=== PATIENT | female | born 1985 | race Caucasian/White ===

== ENCOUNTER 2017-07-28 18:03 | Emergency (ER) | payer MEDICAID, OTHER ==
[~2017-07-28] VITALS: Ht 149.9 cm; Wt 105.0 kg
[~2017-07-28 18:03] MED LIST: ASPI-41 PO; ATOR10TA PO; ESCI20TA PO; HYDR-3972 PO; Metoprolol Tartrate PO; NAPR220T67 PO; SUMA25TA35 PO
[2017-07-28 18:42] LABS: BASOPHILS % (AUTO) 0.2 % (0-1); EOSINOPHILS # (AUTO) 0.3 X10'3 (0-0.9); EOSINOPHILS % (AUTO) 2.6 % (0-6); HEMATOCRIT 34.6 % (35.0-45.0); HEMOGLOBIN 11.9 g/dl (12.0-16.0); LYMPHOCYTES # (AUTO) 1.7 X10'3 (1.1-4.8); LYMPHOCYTES % (AUTO) 15.6 % (21-51); MEAN CORPUSCULAR HEMOGLOBIN 31.1 PG (27.0-31.0); MEAN CORPUSCULAR HGB CONC 34.5 % (33.0-36.5); MEAN CORPUSCULAR VOLUME 90.2 FL (78-98); MEAN PLATELET VOLUME 7.9 FL (7.4-10.4); MONOCYTES # (AUTO) 0.5 X10'3 (0-0.9); MONOCYTES % (AUTO) 4.3 % (2-12); NEUTROPHILS # (AUTO) 8.7 X10'3 (1.8-7.7); NEUTROPHILS % (AUTO) 77.3 % (42-75); PLATELET COUNT 305 X10'3 (140-440); RED BLOOD COUNT 3.83 X10'6 (4.20-5.60); RED CELL DISTRIBUTION WIDTH 12.8 % (11.5-14.5); WHITE BLOOD COUNT 11.2 X10'3 (4.5-11.0)
[2017-07-28 19:01] LABS: ALANINE AMINOTRANSFERASE 37 U/L (12-78); ALBUMIN 3.1 G/DL (3.4-5.0); ALBUMIN/GLOBULIN RATIO 0.8 (1.1-1.5); ALKALINE PHOSPHATASE 60 IU/L (46-116); ANION GAP 10 (8-16); ASPARTATE AMINO TRANSFERASE 18 U/L (10-37); BILIRUBIN,TOTAL 0.3 MG/DL (0.1-1.0); BLOOD UREA NITROGEN 7 MG/DL (7-18); BUN/CREATININE RATIO 12.1 (6.6-38.0); CHLORIDE 104 MMOL/L (99-107); CREATININE 0.58 MG/DL (0.40-0.90); GLUCOSE 83 MG/DL (70-104); POTASSIUM 3.6 MMOL/L (3.5-5.1); SODIUM 135 MMOL/L (135-145); TOTAL CARBON DIOXIDE 21.3 MMOL/L (24-32); TOTAL PROTEIN 7.2 G/DL (6.4-8.2); eGFR > 90 ML/MIN
[2017-07-28 19:18] LABS: BETA HCG,QUANTITATIVE 21469 mIU/ml; MAGNESIUM 1.6 MG/DL (1.5-2.4)
[2017-07-28 20:11] VITALS: BP 113/67
== END 2017-07-28 20:13 | disposition home or self-care (01) ==
LOC: ER 18:05
DX: O26.892 Other specified pregnancy related conditions, second trimester (principal); R07.9 Chest pain, unspecified; E78.00 Pure hypercholesterolemia, unspecified; G43.909 Migraine, unspecified, not intractable, without status migrainosus; I25.10 Atherosclerotic heart disease of native coronary artery without angina pectoris; I25.2 Old myocardial infarction; F41.9 Anxiety disorder, unspecified; O99.332 Smoking (tobacco) complicating pregnancy, second trimester; F17.200 Nicotine dependence, unspecified, uncomplicated; Z79.82 Long term (current) use of aspirin; Z3A.15 15 weeks gestation of pregnancy; Z95.1 Presence of aortocoronary bypass graft
CPT/HCPCS: 36415; 71045; 80053; 83735; 84484; 84702; 85025; 86900; 86901; 93005; 99285; J7030

== ENCOUNTER 2018-12-04 15:14 | Inpatient (IN) | payer MEDICAID ==
[~2018-12-04] VITALS: Ht 149.9 cm; Wt 108.0 kg
[2018-12-04 15:51] LABS: BASOPHILS # (AUTO) 0.1 X10'3 (0-0.2); BASOPHILS % (AUTO) 0.9 % (0-1); EOSINOPHILS # (AUTO) 0.2 X10'3 (0-0.9); EOSINOPHILS % (AUTO) 2.6 % (0-6); HEMATOCRIT 37.9 % (35.0-45.0); LYMPHOCYTES # (AUTO) 1.8 X10'3 (1.1-4.8); LYMPHOCYTES % (AUTO) 23.3 % (21-51); MEAN CORPUSCULAR HEMOGLOBIN 33.1 PG (27.0-31.0); MEAN CORPUSCULAR HGB CONC 34.4 g/dL (33.0-36.5); MEAN CORPUSCULAR VOLUME 96.2 FL (78-98); MEAN PLATELET VOLUME 7.8 FL (7.4-10.4); MONOCYTES # (AUTO) 0.4 X10'3 (0-0.9); MONOCYTES % (AUTO) 5.7 % (2-12); NEUTROPHILS # (AUTO) 5.2 X10'3 (1.8-7.7); NEUTROPHILS % (AUTO) 67.5 % (42-75); PLATELET COUNT 246 X10'3 (140-440); RED BLOOD COUNT 3.94 X10'6 (4.20-5.60); RED CELL DISTRIBUTION WIDTH 13.3 % (11.5-14.5); WHITE BLOOD COUNT 7.7 X10'3 (4.5-11.0)
[2018-12-04 16:03] LABS: ALANINE AMINOTRANSFERASE 55 U/L (12-78); ALBUMIN 3.3 G/DL (3.4-5.0); ALBUMIN/GLOBULIN RATIO 0.9 (1.1-1.5); ALKALINE PHOSPHATASE 72 IU/L (46-116); ANION GAP 8 (8-16); ASPARTATE AMINO TRANSFERASE 26 U/L (10-37); BILIRUBIN,TOTAL 0.2 MG/DL (0.1-1.0); BLOOD UREA NITROGEN 9 MG/DL (7-18); BUN/CREATININE RATIO 10.3 (6.6-38.0); CALCIUM 8.7 MG/DL (8.5-10.1); CHLORIDE 104 MMOL/L (99-107); CREATININE 0.87 MG/DL (0.40-0.90); GLUCOSE 105 MG/DL (70-104); POTASSIUM 3.5 MMOL/L (3.5-5.1); SODIUM 139 MMOL/L (135-145); TOTAL CARBON DIOXIDE 26.9 MMOL/L (24-32); TOTAL PROTEIN 6.9 G/DL (6.4-8.2); eGFR 76 ML/MIN
[2018-12-04 16:29] LABS: PARTIAL THROMBOPLASTIN TIME 24 SECONDS (22-32)
--- NOTE | 2018-12-04 18:00 | NUR ---
spoke to dr felipe informed of left chest pain, she stated that she will put in orders, pt denies current nausea, numbness tingling or lightheadedness
[2018-12-04] MEDS ORDERED: morphine 4 MG/ML inj SYRINge IV ONE ×2 (18:15→19:15)
[2018-12-04] MEDS ORDERED: nitroGLYCERIN 1gm ointment UD TP ONE (19:15)
[2018-12-04] MEDS ORDERED: ESCI20TA PO (19:32)
[2018-12-04] MEDS ORDERED: ATOR20TA PO (19:32)
[2018-12-04] MEDS ORDERED: BACL10TA PO (19:33)
[2018-12-04] MEDS: aspirin 325mg tablet, delayed-release (Ecotrin) PO SCH (19:40)
[2018-12-04] MEDS ORDERED: magnesium 4gm in 100ml NS 100 ML IV PRN (19:45)
[2018-12-04] MEDS ORDERED: potassium CL 10mEq/100ml bag 100 ML IV PRN (19:45)
[2018-12-04] MEDS ORDERED: magnesium Cl slow-release 64mg tablet PO PRN (19:45)
[2018-12-04] MEDS: nitroGLYCERIN 0.4mg/hour patch TD SCH (19:45)
[2018-12-04] MEDS ORDERED: potassium Cl 40MEQ/NS 500ml 500 ML IV PRN (19:45)
[2018-12-04] MEDS ORDERED: magnesium 2GM in 50ml NS 50 ML IV PRN (19:45)
[2018-12-04] MEDS ORDERED: morphine 2 MG/ML inj. syringe IV PRN (19:45)
[2018-12-04] MEDS ORDERED: potassium Cl 20 mEq SR tablet PO PRN ×2 (19:45)
[2018-12-04] MEDS ORDERED: acetaminophen 325mg tablet PO PRN (19:45)
[2018-12-04] MEDS ORDERED: ondansetron/PF 4mg/2ml inj IV PRN (19:45)
[2018-12-04] MEDS ORDERED: LORazepam 2 mg/ml vial IV PRN (19:45)
[2018-12-04] MEDS ORDERED: mag hydrox/Alum hydrox/simeth 30ml oral suspension PO PRN (19:45)
[2018-12-04] MEDS ORDERED: magnesium hydroxide 30ml (MOM) UD suspension PO PRN (19:45)
[2018-12-04] MEDS ORDERED: regadenoson 0.4mg/5ml syringe IV PRN (19:50)
[2018-12-04] MEDS ORDERED: metoprolol tartrate 1mg/ml inj IV PRN (19:50)
[2018-12-04] MEDS ORDERED: aminophylline 250mg/10ml inj. IV PRN (19:50)
--- NOTE | 2018-12-04 20:01 | NUR ---
Attempted to call PCU to give report for pt transfer. Receiving nurses name is Thania and stated they will call me back to receive report in a few minutes.
--- NOTE | 2018-12-04 20:26 | NUR ---
Patient in room 3024A. I have received report from ELVIS Christine and had the opportunity to ask questions and assume patient care.
[2018-12-04 20:49] VITALS: BP 174/70
[2018-12-04] MEDS: docusate sod 100mg capsule PO SCH (20:57)
[2018-12-04] MEDS: folic acid 1mg tablet PO SCH (20:58)
[2018-12-04] MEDS: metoprolol tartrate 25mg tablet PO SCH (20:58)
[2018-12-04] MEDS: thiamine 100mg tablet PO SCH (20:58)
[2018-12-04] MEDS: heparin, porcine 5000 units/ml vial SQ SCH (21:00)
[2018-12-04 22:00] VITALS: BP 152/95
[2018-12-04] MEDS: morphine 2 MG/ML inj. syringe IV PRN (22:53)
[2018-12-04] MEDS: baclofen 10mg tablet PO SCH (23:41)
[2018-12-05] VITALS (13 sets, daily range): BP systolic 96–148; BP diastolic 52–86
[2018-12-05] MEDS: nitroGLYCERIN 0.4mg SUBLingual tab SL PRN ×2 (00:20→03:42)
[2018-12-05] MEDS: morphine 2 MG/ML inj. syringe IV PRN ×3 (03:38→14:54)
--- NOTE | 2018-12-05 06:12 | NUR ---
Problems reprioritized. Patient report given, questions answered & plan of care reviewed with ELVIS ESPINOSA/ELVIS SANABRIA.
--- NOTE | 2018-12-05 06:23 | NUR ---
Patient in room PCU 3024. I have received report from Thania LEAL and had the opportunity to ask questions and assume patient care.
[2018-12-05 07:08] LABS: BASOPHILS % (AUTO) 0.6 % (0-1); EOSINOPHILS # (AUTO) 0.2 X10'3 (0-0.9); EOSINOPHILS % (AUTO) 3.7 % (0-6); HEMATOCRIT 35.2 % (35.0-45.0); HEMOGLOBIN 11.9 g/dl (12.0-16.0); LYMPHOCYTES # (AUTO) 1.8 X10'3 (1.1-4.8); LYMPHOCYTES % (AUTO) 29.5 % (21-51); MEAN CORPUSCULAR HEMOGLOBIN 33.2 PG (27.0-31.0); MEAN CORPUSCULAR HGB CONC 33.9 g/dL (33.0-36.5); MEAN CORPUSCULAR VOLUME 97.8 FL (78-98); MEAN PLATELET VOLUME 8.2 FL (7.4-10.4); MONOCYTES # (AUTO) 0.3 X10'3 (0-0.9); MONOCYTES % (AUTO) 5.3 % (2-12); NEUTROPHILS # (AUTO) 3.7 X10'3 (1.8-7.7); NEUTROPHILS % (AUTO) 60.9 % (42-75); PLATELET COUNT 199 X10'3 (140-440); RED CELL DISTRIBUTION WIDTH 12.9 % (11.5-14.5)
[2018-12-05 07:25] LABS: ALANINE AMINOTRANSFERASE 50 U/L (12-78); ALBUMIN 2.9 G/DL (3.4-5.0); ALBUMIN/GLOBULIN RATIO 0.9 (1.1-1.5); ALKALINE PHOSPHATASE 62 IU/L (46-116); ANION GAP 7 (8-16); ASPARTATE AMINO TRANSFERASE 26 U/L (10-37); BILIRUBIN,TOTAL 0.2 MG/DL (0.1-1.0); BLOOD UREA NITROGEN 12 MG/DL (7-18); BUN/CREATININE RATIO 13.8 (6.6-38.0); CALCIUM 7.7 MG/DL (8.5-10.1); CHLORIDE 104 MMOL/L (99-107); CREATININE 0.87 MG/DL (0.40-0.90); GLUCOSE 108 MG/DL (70-104); SODIUM 138 MMOL/L (135-145); TOTAL CARBON DIOXIDE 27.5 MMOL/L (24-32); TOTAL PROTEIN 6.1 G/DL (6.4-8.2); eGFR 76 ML/MIN
[2018-12-05 07:26] LABS: POTASSIUM 3.4 MMOL/L (3.5-5.1)
[2018-12-05 07:37] LABS: CHOL/HDL RATIO 17.1 (0.00-4.99); CHOLESTEROL 324 MG/DL (0-200); HDL CHOLESTEROL 19 MG/DL (35-60); LDL CHOLESTEROL 193 MG/DL (50-100); MAGNESIUM 1.5 MG/DL (1.5-2.4)
[2018-12-05 07:38] LABS: TRIGLYCERIDES 1087 MG/DL (20-135)
[2018-12-05] MEDS ORDERED: atorvastatin 20mg tablet PO SCH (08:00)
[2018-12-05] MEDS ORDERED: citalopram 20mg tablet PO SCH (08:00)
[2018-12-05] MEDS ORDERED: K and/or MAG REPLACEMENT MC SCH (08:00)
[2018-12-05] MEDS ORDERED: escitalopram 20mg tablet PO SCH (08:00)
[2018-12-05] MEDS ORDERED: non-formulary drug (Atorvastatin Calcium (Lipitor) 1 TAB) PO SCH (08:00)
--- NOTE | 2018-12-05 08:22 | NUR ---
Page to Echo: [id number] cari Garcia has an active order for Echo. Thank you.
[2018-12-05] MEDS ORDERED: regadenoson 0.4mg/5ml syringe IV ONE (09:12)
[2018-12-05] MEDS ORDERED: aminophylline inj. 10 ML IV ONE (09:12)
[2018-12-05] MEDS: thiamine 100mg tablet PO SCH (10:58)
[2018-12-05] MEDS: heparin, porcine 5000 units/ml vial SQ SCH (10:58)
[2018-12-05] MEDS: baclofen 10mg tablet PO SCH ×2 (10:59→16:43)
[2018-12-05] MEDS: aspirin 325mg tablet, delayed-release (Ecotrin) PO SCH (10:59)
[2018-12-05] MEDS: nitroGLYCERIN 0.4mg/hour patch TD SCH (11:00)
[2018-12-05] MEDS: docusate sod 100mg capsule PO SCH (11:00)
[2018-12-05] MEDS: folic acid 1mg tablet PO SCH (11:00)
[2018-12-05] MEDS: metoprolol tartrate 25mg tablet PO SCH (11:00)
[2018-12-05] MEDS ORDERED: iohexol 350MG/ML 100ml bottle IV ONE (14:18)
--- NOTE | 2018-12-05 14:42 | NUR ---
PAGER ID: [phone] MESSAGE: [phone] pt Jose is requesting different pain medication because she said the Morphine has been ineffective. Thank you - Kayla [phone]
[2018-12-05] MEDS ORDERED: HYDROmorphone inj. 0.5 MG/0.5 ML DISP.SYRIN IV PRN (15:00)
[2018-12-05] MEDS ORDERED: FENO48TA15 PO (17:07)
[2018-12-05] MEDS ORDERED: ATOR40TA PO (17:07)
[2018-12-05] MEDS ORDERED: GEMF600T89 PO (17:10)
--- NOTE | 2018-12-05 17:44 | NUR ---
Patient discharged stable and in no apparent distress with at side. IV taken out. Discharge prescriptions called into [facility] [address] in [place].
== END 2018-12-05 17:35 | disposition home or self-care (01) | DRG 198 ==
LOC: ER 15:14 → PCU 3S 20:32
PROVIDERS: ADMIT Internal Medicine; ATTEND Internal Medicine
PROC: 4A02XM4 Measurement of Cardiac Total Activity, External Approach (ICD-10-PCS; principal; 2018-12-05)
PROC: 3E033HZ Introduction of Radioactive Substance into Peripheral Vein, Percutaneous Approach (ICD-10-PCS; 2018-12-05)
PROC: B32T1ZZ Computerized Tomography (CT Scan) of Left Pulmonary Artery using Low Osmolar Contrast (ICD-10-PCS; 2018-12-05)
PROC: B3201ZZ Computerized Tomography (CT Scan) of Thoracic Aorta using Low Osmolar Contrast (ICD-10-PCS; 2018-12-05)
PROC: B32S1ZZ Computerized Tomography (CT Scan) of Right Pulmonary Artery using Low Osmolar Contrast (ICD-10-PCS; 2018-12-05)
DX: R07.9 Chest pain, unspecified (principal); I25.10 Atherosclerotic heart disease of native coronary artery without angina pectoris; E66.01 Morbid (severe) obesity due to excess calories; E28.2 Polycystic ovarian syndrome; E78.00 Pure hypercholesterolemia, unspecified; E78.5 Hyperlipidemia, unspecified; F10.20 Alcohol dependence, uncomplicated; G43.909 Migraine, unspecified, not intractable, without status migrainosus; F32.9 Major depressive disorder, single episode, unspecified; F41.9 Anxiety disorder, unspecified; F17.200 Nicotine dependence, unspecified, uncomplicated; I10 Essential (primary) hypertension; I25.2 Old myocardial infarction; Z79.82 Long term (current) use of aspirin; Z79.899 Other long term (current) drug therapy; Z95.1 Presence of aortocoronary bypass graft; Z68.42 Body mass index [BMI] 45.0-49.9, adult; Z71.6 Tobacco abuse counseling; Z71.41 Alcohol abuse counseling and surveillance of alcoholic
CPT/HCPCS: 36415; 71045; 71275; 78452; 80053; 80061; 83735; 83880; 84484; 85025; 85610; 85730; 93005; 93017; 93306; 96374; 96376; 99285; A9500; G0378; J0280; J1644; J2270; Q9967

== ENCOUNTER 2019-08-22 15:09 | Emergency (ER) | payer MEDICAID, OTHER ==
[~2019-08-22] VITALS: Ht 151.1 cm; Wt 110.1 kg
[~2019-08-22 15:09] MED LIST changes: -ATOR10TA PO; +BACL10TA PO; +GEMF600T89 PO; -HYDR-3972 PO; -Metoprolol Tartrate PO; -SUMA25TA35 PO
[2019-08-22] MEDS ORDERED: nitroGLYCERIN 0.4mg/hour patch TD ONE (15:40)
[2019-08-22] MEDS ORDERED: aspirin 81mg tab.chew PO ONE (15:40)
--- NOTE | 2019-08-22 15:59 | NUR ---
PER MILO MINOR GIVE NITRO SL PRIOR TO NITRO PATCH (SEE EMAR).
[2019-08-22] MEDS ORDERED: nitroGLYCERIN 0.4mg SUBLingual tab SL PRN (16:00)
--- NOTE | 2019-08-22 16:14 | NUR ---
MILO MINOR MADE AWARE PATIENT HAD FIRST NITRO SL WITH NO RELIEF AND WANTS TO HOLD OFF ON SECOND DOSE AT THIS TIME STATING PAIN FEELS LIKE IT IS "ON THE BONE". NO NEW ORDERS AT THIS TIME.
[2019-08-22 16:15] LABS: BASOPHILS # (AUTO) 0.1 X10'3 (0-0.2); BASOPHILS % (AUTO) 1.3 % (0-1); EOSINOPHILS # (AUTO) 0.2 X10'3 (0-0.9); EOSINOPHILS % (AUTO) 3.3 % (0-6); HEMATOCRIT 37.5 % (35.0-45.0); HEMOGLOBIN 13.1 g/dl (12.0-16.0); LYMPHOCYTES # (AUTO) 1.5 X10'3 (1.1-4.8); LYMPHOCYTES % (AUTO) 21.3 % (21-51); MEAN CORPUSCULAR HEMOGLOBIN 33.8 PG (27.0-31.0); MEAN CORPUSCULAR HGB CONC 34.9 g/dL (33.0-36.5); MEAN PLATELET VOLUME 7.7 FL (7.4-10.4); MONOCYTES # (AUTO) 0.4 X10'3 (0-0.9); MONOCYTES % (AUTO) 5.2 % (2-12); NEUTROPHILS # (AUTO) 4.9 X10'3 (1.8-7.7); NEUTROPHILS % (AUTO) 68.9 % (42-75); PLATELET COUNT 227 X10'3 (140-440); RED BLOOD COUNT 3.86 X10'6 (4.20-5.60); RED CELL DISTRIBUTION WIDTH 13.2 % (11.5-14.5); WHITE BLOOD COUNT 7.1 X10'3 (4.5-11.0)
[2019-08-22 16:24] LABS: ALANINE AMINOTRANSFERASE 41 U/L (12-78); ALBUMIN 3.5 G/DL (3.4-5.0); ALKALINE PHOSPHATASE 66 IU/L (46-116); ANION GAP 3 (8-16); ASPARTATE AMINO TRANSFERASE 24 U/L (10-37); BILIRUBIN,TOTAL 0.2 MG/DL (0.1-1.0); BLOOD UREA NITROGEN 7 MG/DL (7-18); BUN/CREATININE RATIO 7.1 (6.6-38.0); CALCIUM 8.8 MG/DL (8.5-10.1); CHLORIDE 108 MMOL/L (99-107); CREATININE 0.99 MG/DL (0.40-0.90); GLUCOSE 113 MG/DL (70-104); POTASSIUM 4.2 MMOL/L (3.5-5.1); SODIUM 140 MMOL/L (135-145); TOTAL CARBON DIOXIDE 28.6 MMOL/L (24-32); TOTAL PROTEIN 7.1 G/DL (6.4-8.2); eGFR 65 ML/MIN
[2019-08-22 16:32] LABS: MAGNESIUM 1.8 MG/DL (1.5-2.4)
[2019-08-22] MEDS ORDERED: ketorolac tromethamine 15mg/ml inj. IV ONE (16:50)
[2019-08-22 17:00] VITALS: BP 139/73
== END 2019-08-22 17:58 | disposition home or self-care (01) ==
LOC: ER 15:09
DX: R07.89 Other chest pain (principal); F17.200 Nicotine dependence, unspecified, uncomplicated; G43.909 Migraine, unspecified, not intractable, without status migrainosus; I25.10 Atherosclerotic heart disease of native coronary artery without angina pectoris; E78.00 Pure hypercholesterolemia, unspecified; I25.2 Old myocardial infarction; Z95.1 Presence of aortocoronary bypass graft; Z79.899 Other long term (current) drug therapy
CPT/HCPCS: 36415; 71045; 80053; 83735; 83880; 84484; 85025; 85379; 93005; 96374; 99284; J1885

== ENCOUNTER 2020-01-09 07:29 | Emergency (ER) | payer MEDICAID, OTHER ==
[~2020-01-09] VITALS: Ht 152.4 cm; Wt 105.0 kg
[2020-01-09] MEDS ORDERED: penicillin G benzathine 1.2 million unit/2ml syringe IM ONE (09:10)
[2020-01-09 09:39] VITALS: BP 127/79
== END 2020-01-09 09:46 | disposition home or self-care (01) ==
LOC: ER 07:30
DX: J02.0 Streptococcal pharyngitis (principal); I25.10 Atherosclerotic heart disease of native coronary artery without angina pectoris; E78.00 Pure hypercholesterolemia, unspecified; I25.2 Old myocardial infarction; F41.9 Anxiety disorder, unspecified; F32.9 Major depressive disorder, single episode, unspecified; F17.200 Nicotine dependence, unspecified, uncomplicated; Z95.1 Presence of aortocoronary bypass graft; Z79.82 Long term (current) use of aspirin; Z79.899 Other long term (current) drug therapy
CPT/HCPCS: 71045; 87880; 96372; 99284; J0561

== ENCOUNTER 2020-06-21 09:08 | Emergency (ER) | payer MEDICAID ==
[~2020-06-21] VITALS: Ht 149.9 cm; Wt 109.1 kg
[2020-06-21] MEDS ORDERED: normal saline 1000ML IV soln IVB ONE (09:20)
[2020-06-21] MEDS ORDERED: ondansetron/PF 4mg/2ml inj IV ONE (09:20)
[2020-06-21] MEDS ORDERED: ketorolac tromethamine 15mg/ml inj. IV ONE (09:20)
[2020-06-21] MEDS: morphine 4 MG/ML inj SYRINge IV PRN ×2 (09:45→10:34)
[2020-06-21 09:52] LABS: BASOPHILS % (AUTO) 0.3 % (0-1); EOSINOPHILS # (AUTO) 0.2 X10'3 (0-0.9); EOSINOPHILS % (AUTO) 1.8 % (0-6); HEMATOCRIT 37.2 % (35.0-45.0); HEMOGLOBIN 12.9 g/dl (12.0-16.0); LYMPHOCYTES # (AUTO) 1.6 X10'3 (1.1-4.8); LYMPHOCYTES % (AUTO) 16.3 % (21-51); MEAN CORPUSCULAR HEMOGLOBIN 36.8 PG (27.0-31.0); MEAN CORPUSCULAR HGB CONC 34.6 g/dL (33.0-36.5); MEAN CORPUSCULAR VOLUME 106.3 FL (78-98); MEAN PLATELET VOLUME 7.6 FL (7.4-10.4); MONOCYTES # (AUTO) 0.6 X10'3 (0-0.9); NEUTROPHILS # (AUTO) 7.4 X10'3 (1.8-7.7); NEUTROPHILS % (AUTO) 75.6 % (42-75); PLATELET COUNT 245 X10'3 (140-440); RED BLOOD COUNT 3.49 X10'6 (4.20-5.60); RED CELL DISTRIBUTION WIDTH 13.8 % (11.5-14.5); WHITE BLOOD COUNT 9.8 X10'3 (4.5-11.0)
[2020-06-21 10:06] LABS: CLARITY,URINE CLOUDY (Clear); COLOR,URINE YELLOW (Yellow); GLUCOSE, URINE NEGATIVE (Neg); KETONES,URINE NEGATIVE (Neg); LEUKOCYTE ESTERASE ,URINE MODERATE (Neg); NITRITES, URINE POSITIVE (Neg); OCCULT BLOOD,URINE LARGE (Neg); PROTEIN,URINE >=300 mg/dl (Neg)
[2020-06-21 10:07] LABS: UA COLLECTION TYPE CLN CATCH MIDSTREAM
[2020-06-21 10:10] LABS: URINE HCG NEGATIVE (NEG)
[2020-06-21 10:13] LABS: RBC,URINE TNTC /HPF (0-2); WBC,URINE 50-100 /HPF (0-4)
[2020-06-21 10:14] LABS: ALANINE AMINOTRANSFERASE 57 U/L (12-78); ALBUMIN 3.7 G/DL (3.4-5.0); ALKALINE PHOSPHATASE 64 IU/L (46-116); ANION GAP 9 (8-16); ASPARTATE AMINO TRANSFERASE 28 U/L (10-37); BILIRUBIN,TOTAL 0.4 MG/DL (0.1-1.0); BLOOD UREA NITROGEN 6 MG/DL (7-18); BUN/CREATININE RATIO 6.6 (6.6-38.0); CALCIUM 8.6 MG/DL (8.5-10.1); CHLORIDE 105 MMOL/L (99-107); CREATININE 0.91 MG/DL (0.40-0.90); GLUCOSE 123 MG/DL (70-104); POTASSIUM 3.3 MMOL/L (3.5-5.1); SODIUM 141 MMOL/L (135-145); TOTAL CARBON DIOXIDE 26.6 MMOL/L (24-32); TOTAL PROTEIN 7.4 G/DL (6.4-8.2); eGFR 71 ML/MIN
[2020-06-21 10:15] LABS: BACTERIA,URINE 1+ /HPF (Neg)
[2020-06-21 10:16] LABS: SQUAMOUS EPITHELIAL CELL,UR FEW /LPF (FEW); WBC CLUMPS,URINE FEW /HPF (NEGATIVE)
[2020-06-21 10:17] LABS: FINE GRANULAR CAST 0-3 /LPF (NEGATIVE)
[2020-06-21 10:27] VITALS: BP 143/84
[2020-06-21] MEDS ORDERED: CEPH250T PO (10:37)
[2020-06-21] MEDS ORDERED: HYDR-4383 PO (10:37)
[2020-06-21] MEDS ORDERED: NAPR-56 PO (10:37)
== END 2020-06-21 11:00 | disposition home or self-care (01) ==
LOC: ER 09:08
DX: N12 Tubulo-interstitial nephritis, not specified as acute or chronic (principal); R19.7 Diarrhea, unspecified; M54.5 Low back pain; R11.2 Nausea with vomiting, unspecified; R10.84 Generalized abdominal pain; G43.909 Migraine, unspecified, not intractable, without status migrainosus; I25.10 Atherosclerotic heart disease of native coronary artery without angina pectoris; E78.00 Pure hypercholesterolemia, unspecified; I25.2 Old myocardial infarction; F41.9 Anxiety disorder, unspecified; F32.9 Major depressive disorder, single episode, unspecified; Z98.890 Other specified postprocedural states; Z79.82 Long term (current) use of aspirin; Z79.2 Long term (current) use of antibiotics; Z79.899 Other long term (current) drug therapy
CPT/HCPCS: 36415; 74176; 80053; 81001; 81025; 85025; 87088; 87186; 96361; 96374; 96375; 96376; 99284; J1885; J2270; J2405; J7030; 87077

== ENCOUNTER 2020-11-28 14:50 | Emergency (ER) | payer MEDICAID ==
[~2020-11-28] VITALS: Ht 149.9 cm; Wt 107.0 kg
[~2020-11-28 14:50] MED LIST changes: +HYDR-4383 PO
[2020-11-28 15:01] VITALS: BP 138/88
[2020-11-28 15:35] LABS: BASOPHILS % (AUTO) 0.6 % (0-1); EOSINOPHILS # (AUTO) 0.1 X10'3 (0-0.9); EOSINOPHILS % (AUTO) 2.9 % (0-6); HEMATOCRIT 39.8 % (35.0-45.0); HEMOGLOBIN 13.5 g/dl (12.0-16.0); LYMPHOCYTES # (AUTO) 0.9 X10'3 (1.1-4.8); LYMPHOCYTES % (AUTO) 18.8 % (21-51); MEAN CORPUSCULAR HEMOGLOBIN 38.5 PG (27.0-31.0); MEAN CORPUSCULAR VOLUME 113.3 FL (78-98); MEAN PLATELET VOLUME 7.3 FL (7.4-10.4); MONOCYTES # (AUTO) 0.3 X10'3 (0-0.9); MONOCYTES % (AUTO) 5.3 % (2-12); NEUTROPHILS # (AUTO) 3.5 X10'3 (1.8-7.7); NEUTROPHILS % (AUTO) 72.4 % (42-75); PLATELET COUNT 196 X10'3 (140-440); RED BLOOD COUNT 3.51 X10'6 (4.20-5.60); RED CELL DISTRIBUTION WIDTH 13.9 % (11.5-14.5); WHITE BLOOD COUNT 4.8 X10'3 (4.5-11.0)
[2020-11-28 15:49] LABS: ALANINE AMINOTRANSFERASE 150 U/L (12-78); ALBUMIN 3.4 G/DL (3.4-5.0); ALBUMIN/GLOBULIN RATIO 0.9 (1.1-1.5); ALKALINE PHOSPHATASE 77 IU/L (46-116); AMYLASE 12 U/L (25-115); ANION GAP 11 (8-16); ASPARTATE AMINO TRANSFERASE 131 U/L (10-37); BILIRUBIN,TOTAL 0.5 MG/DL (0.1-1.0); BLOOD UREA NITROGEN 4 MG/DL (7-18); BUN/CREATININE RATIO 4.9 (6.6-38.0); CALCIUM 8.4 MG/DL (8.5-10.1); CHLORIDE 103 MMOL/L (99-107); CREATININE 0.82 MG/DL (0.40-0.90); GLUCOSE 159 MG/DL (70-104); LIPASE 99 U/L (73-393); POTASSIUM 3.7 MMOL/L (3.5-5.1); SODIUM 144 MMOL/L (135-145); TOTAL CARBON DIOXIDE 29.6 MMOL/L (24-32); eGFR 80 ML/MIN
[2020-11-28 17:59] LABS: NUCLEATED RED BLOOD CELLS 1 /100WBC (0-0); PLATELET ESTIMATE NORMAL; TOTAL CELLS COUNTED 100
[2020-11-28 18:00] LABS: STOMATOCYTES 2+
--- NOTE | 2020-11-28 18:02 | NUR ---
ultrasound just finished
[2020-11-28] MEDS ORDERED: ondansetron 4mg rapidly disintigrating tab PO ONE (18:05)
[2020-11-28 18:33] LABS: URINE HCG NEGATIVE (NEG)
[2020-11-28 18:39] LABS: CLARITY,URINE SLIGHTLY CLOUDY (Clear); COLOR,URINE YELLOW (Yellow); GLUCOSE, URINE NEGATIVE (Neg); KETONES,URINE NEGATIVE (Neg); LEUKOCYTE ESTERASE ,URINE TRACE (Neg); NITRITES, URINE POSITIVE (Neg); OCCULT BLOOD,URINE NEGATIVE (Neg); PH,URINE 6.5 (4.8-8.0); PROTEIN,URINE NEGATIVE (Neg)
[2020-11-28 18:44] LABS: UA COLLECTION TYPE CLN CATCH MIDSTREAM
[2020-11-28 18:54] LABS: BACTERIA,URINE 4+ /HPF (Neg); MUCUS STRANDS FEW /LPF (Neg); RBC,URINE NONE SEEN /HPF (0-2); SQUAMOUS EPITHELIAL CELL,UR MODERATE /LPF (FEW); TRANSITIONAL EPI CELLS,URINE FEW /HPF
[2020-11-28] MEDS ORDERED: CEPH-585 PO (23:58)
== END 2020-11-28 18:50 | disposition home or self-care (01) ==
LOC: ER 14:51
DX: K76.0 Fatty (change of) liver, not elsewhere classified (principal); R74.8 Abnormal levels of other serum enzymes; N39.0 Urinary tract infection, site not specified; G43.909 Migraine, unspecified, not intractable, without status migrainosus; I25.10 Atherosclerotic heart disease of native coronary artery without angina pectoris; E78.00 Pure hypercholesterolemia, unspecified; I25.2 Old myocardial infarction; Z95.5 Presence of coronary angioplasty implant and graft; Z79.82 Long term (current) use of aspirin; Z79.899 Other long term (current) drug therapy
CPT/HCPCS: 36415; 76700; 80053; 81001; 81025; 82150; 83690; 85007; 85025; 87077; 87088; 87186; 99284

== ENCOUNTER 2020-12-16 13:28 | Emergency (ER) | payer MEDICAID ==
[~2020-12-16] VITALS: Ht 152.4 cm; Wt 107.7 kg
[2020-12-16 13:44] VITALS: BP 155/81
== END 2020-12-16 16:08 | disposition home or self-care (01) ==
LOC: ER 13:29
DX: M79.671 Pain in right foot (principal); E78.00 Pure hypercholesterolemia, unspecified; G43.909 Migraine, unspecified, not intractable, without status migrainosus; I11.9 Hypertensive heart disease without heart failure; F41.9 Anxiety disorder, unspecified; F32.9 Major depressive disorder, single episode, unspecified; Z95.0 Presence of cardiac pacemaker; X58.XXXA Exposure to other specified factors, initial encounter; Y93.89 Activity, other specified; Y92.89 Other specified places as the place of occurrence of the external cause; Y99.8 Other external cause status
CPT/HCPCS: 73630; 99283

== ENCOUNTER 2021-07-10 15:52 | Inpatient (IN) | payer MEDICAID ==
[~2021-07-10] VITALS: Ht 149.9 cm; Wt 113.6 kg
[2021-07-10 16:27] LABS: BASOPHILS % (AUTO) 0.4 % (0-1); EOSINOPHILS # (AUTO) 0.1 X10'3 (0-0.9); EOSINOPHILS % (AUTO) 1.7 % (0-6); HEMATOCRIT 42.3 % (35.0-45.0); HEMOGLOBIN 14.2 g/dl (12.0-16.0); LYMPHOCYTES # (AUTO) 1.6 X10'3 (1.1-4.8); LYMPHOCYTES % (AUTO) 23.1 % (21-51); MEAN CORPUSCULAR HEMOGLOBIN 38.2 PG (27.0-31.0); MEAN CORPUSCULAR HGB CONC 33.7 g/dL (33.0-36.5); MEAN CORPUSCULAR VOLUME 113.4 FL (78-98); MEAN PLATELET VOLUME 6.8 FL (7.4-10.4); MONOCYTES # (AUTO) 0.4 X10'3 (0-0.9); MONOCYTES % (AUTO) 6.1 % (2-12); NEUTROPHILS # (AUTO) 4.7 X10'3 (1.8-7.7); NEUTROPHILS % (AUTO) 68.7 % (42-75); PLATELET COUNT 256 X10'3 (140-440); RED BLOOD COUNT 3.73 X10'6 (4.20-5.60); RED CELL DISTRIBUTION WIDTH 16.5 % (11.5-14.5); WHITE BLOOD COUNT 6.8 X10'3 (4.5-11.0)
[2021-07-10 16:44] LABS: ALANINE AMINOTRANSFERASE 111 U/L (12-78); ALBUMIN 3.8 G/DL (3.4-5.0); ALBUMIN/GLOBULIN RATIO 0.9 (1.1-1.5); ALKALINE PHOSPHATASE 70 IU/L (46-116); ANION GAP 10 (8-16); ASPARTATE AMINO TRANSFERASE 105 U/L (10-37); BILIRUBIN,TOTAL 0.5 MG/DL (0.1-1.0); BLOOD UREA NITROGEN 6 MG/DL (7-18); BUN/CREATININE RATIO 7.1 (6.6-38.0); CHLORIDE 102 MMOL/L (99-107); CREATININE 0.85 MG/DL (0.40-0.90); GLUCOSE 119 MG/DL (70-104); POTASSIUM 3.7 MMOL/L (3.5-5.1); SODIUM 143 MMOL/L (135-145); TOTAL CARBON DIOXIDE 30.6 MMOL/L (24-32); TOTAL PROTEIN 7.9 G/DL (6.4-8.2); eGFR 77 ML/MIN
[2021-07-10] MEDS ORDERED: aspirin 81mg tab.chew PO ONE (17:10)
--- NOTE | 2021-07-10 17:53 | NUR ---
received patient in bed 7.
--- NOTE | 2021-07-10 18:31 | NUR ---
received critical lab value of 1237 for Troponin. attending nurse notified.
[2021-07-10] MEDS ORDERED: nitroGLYCERIN 0.4mg SUBLingual tab SL ONE (18:33)
--- NOTE | 2021-07-10 18:37 | NUR ---
1ST NMITRO GIVEN PER md ORDER - TROPONIN CRITICAL VALUE NOTED. OVIDIO ALREADY REPORTS NICE. PT IS HYPERTENSIVE AOX4 AND RATES PAIN 9/10 'LIKE A CROWBAR IN MY CHEST'
--- NOTE | 2021-07-10 18:40 | NUR ---
SECOND NITRO -MAR WILL NOT ALLOW MED DOCUMENTATION. PATIENT REPORTS 01/20 AFTER 1ST NITRO AND 5 MINUTES
--- NOTE | 2021-07-10 18:46 | NUR ---
pain down to 7/10 BP 159/100. 3rd nitro given per MD order
--- NOTE | 2021-07-10 18:51 | NUR ---
pain down to 510 - MD notified
[2021-07-10 18:57] LABS: PLATELET ESTIMATE NORMAL; TOTAL CELLS COUNTED 100
[2021-07-10 18:58] LABS: ANISOCYTOSIS 1+; STOMATOCYTES 2+; TOXIC GRANULATION 1+; TOXIC VACUOLATION FEW
[2021-07-10] MEDS ORDERED: morphine 4 MG/ML inj SYRINge IV ONE ×2 (19:10→22:15)
[2021-07-10] MEDS ORDERED: heparin 10,000 units/1 ML INJ IV ONE ×2 (19:10→19:15)
[2021-07-10] MEDS: heparin 25,000 UNIT/250ml bag 250 ML IV SCH (19:31)
[2021-07-10 20:20] LABS: BASOPHILS # (AUTO) 0.1 X10'3 (0-0.2); BASOPHILS % (AUTO) 0.9 % (0-1); EOSINOPHILS # (AUTO) 0.1 X10'3 (0-0.9); EOSINOPHILS % (AUTO) 1.8 % (0-6); HEMATOCRIT 38.2 % (35.0-45.0); HEMOGLOBIN 13.1 g/dl (12.0-16.0); LYMPHOCYTES # (AUTO) 1.3 X10'3 (1.1-4.8); LYMPHOCYTES % (AUTO) 20.9 % (21-51); MEAN CORPUSCULAR HEMOGLOBIN 38.6 PG (27.0-31.0); MEAN CORPUSCULAR HGB CONC 34.2 g/dL (33.0-36.5); MEAN CORPUSCULAR VOLUME 112.7 FL (78-98); MEAN PLATELET VOLUME 6.8 FL (7.4-10.4); MONOCYTES # (AUTO) 0.4 X10'3 (0-0.9); MONOCYTES % (AUTO) 5.5 % (2-12); NEUTROPHILS # (AUTO) 4.6 X10'3 (1.8-7.7); NEUTROPHILS % (AUTO) 70.9 % (42-75); PLATELET COUNT 234 X10'3 (140-440); RED BLOOD COUNT 3.39 X10'6 (4.20-5.60); RED CELL DISTRIBUTION WIDTH 16.4 % (11.5-14.5); WHITE BLOOD COUNT 6.4 X10'3 (4.5-11.0)
[2021-07-10 20:34] LABS: APTT 54 SECONDS (22-32)
--- NOTE | 2021-07-10 21:57 | NUR ---
Note undone in EDM - 07/10/21 at [address] love by phone to notify of patient's hypotension and his new order for nitro gtt. dr garcia start nitro gtt and monitor blood pressure and give NS 1 liter bolus if hypotension worsens and uop decreases. dr love stated that this rn would put said orders in not him. patient is pale wd gutierrez hypotnesive CP 5/10 and tachypneic with audible wheezing. Will CTM.
[2021-07-11] MEDS ORDERED: ondansetron 4mg rapidly disintigrating tab PO PRN (00:10)
[2021-07-11] MEDS ORDERED: diphenhydrAMINE 25mg capsule PO PRN (00:10)
[2021-07-11] MEDS ORDERED: acetaminophen 650mg rectal suppository RC PRN (00:10)
[2021-07-11] MEDS ORDERED: morphine 2 MG/ML inj. syringe IV PRN (00:10)
[2021-07-11] MEDS ORDERED: haloperidol 5mg tablet PO PRN (00:10)
[2021-07-11] MEDS ORDERED: dextrose 50%-water 50ml dispensing syringe IV PRN (00:10)
[2021-07-11] MEDS ORDERED: bisacodyl 10mg suppository rectal RC PRN (00:10)
[2021-07-11] MEDS ORDERED: LORazepam 2 mg/ml vial IV PRN (00:10)
[2021-07-11] MEDS ORDERED: ondansetron/PF 4mg/2ml inj IV PRN (00:10)
[2021-07-11] MEDS ORDERED: acetaminophen 325mg tablet PO PRN ×2 (00:10)
[2021-07-11] MEDS ORDERED: haloperidol lactate 5mg/ml inj IM PRN (00:10)
[2021-07-11] MEDS ORDERED: mag hydrox/Alum hydrox/simeth 30ml oral suspension PO PRN (00:10)
[2021-07-11] MEDS ORDERED: diphenhydrAMINE 50 mg/ml inj IV PRN (00:10)
[2021-07-11] MEDS ORDERED: magnesium hydroxide 30ml (MOM) UD suspension PO PRN (00:10)
[2021-07-11 00:15] LABS: D-DIMER 0.26 MG/L FEU (0-0.50)
[2021-07-11] MEDS ORDERED: lisinopril 10 MG tablet PO ONE (00:30)
--- NOTE | 2021-07-11 01:31 | NUR ---
patietn desats to 81 when sleeping. placed on 1.5L oxygen NC
[2021-07-11 01:51] LABS: BASOPHILS % (AUTO) 0.6 % (0-1); EOSINOPHILS # (AUTO) 0.2 X10'3 (0-0.9); EOSINOPHILS % (AUTO) 2.6 % (0-6); HEMATOCRIT 36.4 % (35.0-45.0); HEMOGLOBIN 12.4 g/dl (12.0-16.0); LYMPHOCYTES # (AUTO) 1.5 X10'3 (1.1-4.8); LYMPHOCYTES % (AUTO) 25.6 % (21-51); MEAN CORPUSCULAR HEMOGLOBIN 38.7 PG (27.0-31.0); MEAN CORPUSCULAR HGB CONC 34.1 g/dL (33.0-36.5); MEAN CORPUSCULAR VOLUME 113.5 FL (78-98); MEAN PLATELET VOLUME 6.9 FL (7.4-10.4); MONOCYTES # (AUTO) 0.3 X10'3 (0-0.9); MONOCYTES % (AUTO) 5.6 % (2-12); NEUTROPHILS # (AUTO) 3.9 X10'3 (1.8-7.7); NEUTROPHILS % (AUTO) 65.6 % (42-75); PLATELET COUNT 212 X10'3 (140-440); RED BLOOD COUNT 3.21 X10'6 (4.20-5.60); RED CELL DISTRIBUTION WIDTH 16.5 % (11.5-14.5); WHITE BLOOD COUNT 5.9 X10'3 (4.5-11.0)
[2021-07-11 02:01] LABS: HEMOGLOBIN A1C 5.8 % (4.5-6.2)
[2021-07-11 02:15] LABS: CREATINE KINASE 205 U/L (26-192); ETHANOL < 0.010 GM/DL (0.0-0.010); MAGNESIUM 1.6 MG/DL (1.5-2.4); PHOSPHORUS 2.8 MG/DL (2.3-4.5)
[2021-07-11 02:59] LABS: ANISOCYTOSIS 1+; PLATELET ESTIMATE NORMAL
[2021-07-11 03:01] LABS: STOMATOCYTES 2+
[2021-07-11] MEDS: morphine 2 MG/ML inj. syringe IV PRN ×2 (03:56→08:14)
[2021-07-11] MEDS: heparin 10,000 units/1 ML INJ IV PRN ×3 (04:00→17:57)
--- NOTE | 2021-07-11 04:03 | NUR ---
medicated for pain, water provided, bolus heparin based on ptt 24
[2021-07-11 06:00] VITALS: BP 133/69
--- NOTE | 2021-07-11 07:06 | NUR ---
Patient in room MED 314. I have received report from ELVIS ESPINO, and had the opportunity to ask questions and assume patient care.
[2021-07-11] MEDS: thiamine 100mg/ml 2ml inj. IV SCH ×3 (08:11→21:00)
[2021-07-11] MEDS: folic acid 1mg/0.2ml inj IV SCH (08:13)
[2021-07-11] MEDS: furosemide 20 MG/2 ML vial IV SCH ×2 (08:13→20:00)
[2021-07-11] MEDS: pantoprazole 40mg Tablet.DR PO SCH (08:23)
[2021-07-11] MEDS: docusate sod 100mg capsule PO SCH ×2 (08:23→19:32)
[2021-07-11] MEDS: nitroGLYCERIN 0.1mg/hour patch TD SCH (08:23)
[2021-07-11] MEDS: atorvastatin 20mg tablet PO SCH (08:23)
[2021-07-11] MEDS: buPROPion 75mg tablet PO SCH (08:23)
[2021-07-11] MEDS: metoprolol succinate 25mg (24-HOUR) SR. Tablet PO SCH (08:24)
[2021-07-11] MEDS ORDERED: magnesium 4gm in 100ml NS 100 ML IV PRN (09:15)
[2021-07-11] MEDS ORDERED: potassium Cl 20 mEq SR tablet PO PRN ×2 (09:15)
[2021-07-11] MEDS ORDERED: magnesium Cl slow-release 64mg tablet PO PRN (09:15)
[2021-07-11] MEDS ORDERED: potassium Cl 40MEQ/1/2NS 520ml 520 ML IV PRN (09:15)
[2021-07-11 11:00] VITALS: BP 113/64
--- NOTE | 2021-07-11 11:51 | NUR ---
Malnutrition consult: Pt admitted w/ NSTEMI and CHF exacerbation per EMR. Current wt not scaled though is consistent w/ wts from previous admits. Pt currently on Sodium restricted diet pending PO though pt states her appetite is fine. No visible signs of wasting observed at bedside. Pt noted w/ lower extremity 2+ edema though possibly r/t CHF. At this time pt does not meet minimum criteria for malnutrition. Will continue to monitor. Addendum: 07/11/21 at [address] Amended: Links added.
[2021-07-11] MEDS: HYDROcodone/acetaminophen 5mg/325mg tablet PO PRN (13:45)
[2021-07-11 15:00] VITALS: BP 152/85
[2021-07-11] MEDS: heparin 25,000 UNIT/250ml bag 250 ML IV SCH (17:07)
--- NOTE | 2021-07-11 18:34 | NUR ---
Problems reprioritized. Patient report given, questions answered & plan of care reviewed with ELVIS GARAY.
[2021-07-11] MEDS ORDERED: metoprolol tartrate 1mg/ml inj IV PRN (18:50)
[2021-07-11] MEDS ORDERED: aminophylline 250mg/10ml inj. IV PRN (18:50)
[2021-07-11] MEDS ORDERED: nitroGLYCERIN 0.4mg SUBLingual tab SL PRN (18:50)
[2021-07-11] MEDS ORDERED: regadenoson 0.4mg/5ml syringe IV PRN (18:50)
[2021-07-11 19:00] VITALS: BP 128/82
[2021-07-11] MEDS: HYDROcodone/acetaminophen 10/325mg tab PO PRN (19:32)
[2021-07-11] MEDS: K and/or MAG REPLACEMENT MC SCH (20:00)
[2021-07-11] MEDS ORDERED: temazepam 15mg capsule PO PRN (21:00)
--- NOTE | 2021-07-11 21:00 | NUR ---
Repeat Troponin 1495 (previously 1579). Dr. Escamilla notified. No new orders
[2021-07-11 22:00] VITALS: BP 96/55
[2021-07-12] VITALS (16 sets, daily range): BP systolic 89–151; BP diastolic 27–98
[2021-07-12] MEDS: HYDROcodone/acetaminophen 10/325mg tab PO PRN ×4 (00:23→22:45)
[2021-07-12 01:45] LABS: ALANINE AMINOTRANSFERASE 114 U/L (12-78); ALBUMIN 3.2 G/DL (3.4-5.0); ALBUMIN/GLOBULIN RATIO 0.9 (1.1-1.5); ALKALINE PHOSPHATASE 57 IU/L (46-116); ANION GAP 8 (8-16); ASPARTATE AMINO TRANSFERASE 113 U/L (10-37); BILIRUBIN,TOTAL 0.5 MG/DL (0.1-1.0); BLOOD UREA NITROGEN 8 MG/DL (7-18); BUN/CREATININE RATIO 9.9 (6.6-38.0); CALCIUM 8.9 MG/DL (8.5-10.1); CHLORIDE 102 MMOL/L (99-107); CREATININE 0.81 MG/DL (0.40-0.90); GLUCOSE 105 MG/DL (70-104); MAGNESIUM 1.6 MG/DL (1.5-2.4); PHOSPHORUS 3.8 MG/DL (2.3-4.5); POTASSIUM 3.8 MMOL/L (3.5-5.1); SODIUM 140 MMOL/L (135-145); TOTAL CARBON DIOXIDE 29.6 MMOL/L (24-32); TOTAL PROTEIN 6.8 G/DL (6.4-8.2); eGFR 81 ML/MIN
[2021-07-12 02:23] LABS: HEMOGLOBIN 12.2 g/dl (12.0-16.0); LYMPHOCYTES # (AUTO) 1.4 X10'3 (1.1-4.8); MONOCYTES # (AUTO) 0.3 X10'3 (0-0.9); RED BLOOD COUNT 3.13 X10'6 (4.20-5.60); WHITE BLOOD COUNT 5.4 X10'3 (4.5-11.0)
[2021-07-12 02:25] LABS: BASOPHILS % (AUTO) 0.9 % (0-1); EOSINOPHILS # (AUTO) 0.1 X10'3 (0-0.9); EOSINOPHILS % (AUTO) 2.2 % (0-6); HEMATOCRIT 35.5 % (35.0-45.0); LYMPHOCYTES % (AUTO) 25.7 % (21-51); MEAN CORPUSCULAR HEMOGLOBIN 38.8 PG (27.0-31.0); MEAN CORPUSCULAR HGB CONC 34.3 g/dL (33.0-36.5); MEAN CORPUSCULAR VOLUME 113.1 FL (78-98); MONOCYTES % (AUTO) 6.4 % (2-12); NEUTROPHILS # (AUTO) 3.5 X10'3 (1.8-7.7); NEUTROPHILS % (AUTO) 64.8 % (42-75); PLATELET COUNT 190 X10'3 (140-440); RED CELL DISTRIBUTION WIDTH 16.1 % (11.5-14.5)
[2021-07-12 03:01] LABS: TOTAL CELLS COUNTED 100
[2021-07-12 03:02] LABS: ANISOCYTOSIS 1+; PLATELET ESTIMATE NORMAL
[2021-07-12 03:04] LABS: STOMATOCYTES 1+; TOXIC VACUOLATION 1+
[2021-07-12] MEDS: heparin 10,000 units/1 ML INJ IV PRN ×2 (04:22→18:31)
--- NOTE | 2021-07-12 06:20 | NUR ---
Change of shift report given to Merced LEAL Addendum: 07/12/21 at 0719 by Ashley Lehman RN Amended: Links added.
--- NOTE | 2021-07-12 06:40 | NUR ---
Patient in room MED 314. I have received report from ELVIS GARAY, and had the opportunity to ask questions and assume patient care.
[2021-07-12] MEDS: K and/or MAG REPLACEMENT MC SCH ×2 (08:00→20:00)
[2021-07-12] MEDS: thiamine 100mg/ml 2ml inj. IV SCH ×2 (08:19→15:03)
[2021-07-12] MEDS: furosemide 20 MG/2 ML vial IV SCH (08:20)
[2021-07-12] MEDS: folic acid 1mg/0.2ml inj IV SCH (08:21)
[2021-07-12] MEDS: nitroGLYCERIN 0.1mg/hour patch TD SCH (08:21)
[2021-07-12] MEDS: pantoprazole 40mg Tablet.DR PO SCH (08:22)
[2021-07-12] MEDS: metoprolol succinate 25mg (24-HOUR) SR. Tablet PO SCH (08:22)
[2021-07-12] MEDS: buPROPion 75mg tablet PO SCH (08:22)
[2021-07-12] MEDS: docusate sod 100mg capsule PO SCH ×2 (08:22→20:01)
[2021-07-12] MEDS: atorvastatin 20mg tablet PO SCH (08:22)
[2021-07-12] MEDS: HYDROcodone/acetaminophen 5mg/325mg tablet PO PRN (09:14)
--- NOTE | 2021-07-12 09:15 | NUR ---
Paged Dr Vogt and Dr Gautam regarding stress test and elevated troponins, Dr Vogt returned paged and gave verbal order to call Dr Gautam to proceed with stress test, waiting for call back, [facility] and primary RN aware
[2021-07-12] MEDS: heparin 25,000 UNIT/250ml bag 250 ML IV SCH ×2 (09:20→23:07)
--- NOTE | 2021-07-12 10:00 | NUR ---
DR PEREIRA GAVE VERBAL ORDER TO DO STRESS TEST, PT TAKEN ON TELEMONITOR TO NUC MED WITH RN, HEPARIN GTT INFUSING,
[2021-07-12] MEDS ORDERED: normal saline 500ml IV soln 500 ML IV ONE (11:15)
--- NOTE | 2021-07-12 11:24 | NUR ---
stress not done, blood pressure 91/50 after 500ml bolus, report to primary nurse
[2021-07-12] MEDS ORDERED: regadenoson 0.4mg/5ml syringe IV PRN (12:15)
--- NOTE | 2021-07-12 16:08 | NUR ---
PAGE SENT 314, LOVE JOHNSON, 1515 BP 89/39, HR 62. 1553 BP 90/44, HR 61. THANK YOU, JADE [id number]
--- NOTE | 2021-07-12 16:09 | NUR ---
PAGE SENT PAGER ID: [phone] MESSAGE: [phone], LOVE JOHNSON, PT ASYMTOMATIC. JADE X [id number]
--- NOTE | 2021-07-12 16:46 | NUR ---
[AGE SENT PAGER ID: [phone] MESSAGE: [phone],LOVE JOHNSON, FOUND NOTE THAT [facility] 07/13 730 SURGERY ASSISTANT, DR. PEREIRA. JADE X [id number]
[2021-07-12] MEDS: thiamine 100mg tablet PO SCH (17:55)
--- NOTE | 2021-07-12 18:40 | NUR ---
Problems reprioritized. Patient report given, questions answered & plan of care reviewed with ELVIS REYES.
--- NOTE | 2021-07-12 19:17 | NUR ---
Patient in room MED 314. I have received report from JADE LEAL and had the opportunity to ask questions and assume patient care.
[2021-07-12] MEDS: folic acid 1mg tablet PO SCH (19:37)
[2021-07-12] MEDS: morphine 2 MG/ML inj. syringe IV PRN (19:49)
--- NOTE | 2021-07-12 22:40 | NUR ---
THIAMINE NOT SCANNING
[2021-07-12] MEDS: LORazepam 1 MG tablet PO PRN (23:20)
--- NOTE | 2021-07-12 23:30 | NUR ---
PTT AT 50. NO RATE CHANGE.
[2021-07-13] VITALS (10 sets, daily range): BP systolic 97–142; BP diastolic 48–81
[2021-07-13] MEDS ORDERED: LORazepam 2 mg/ml vial IV PRN (00:10)
--- NOTE | 2021-07-13 06:29 | NUR ---
Problems reprioritized. Patient report given, questions answered & plan of care reviewed with VINNY LEAL.
--- NOTE | 2021-07-13 06:40 | NUR ---
Patient in room MED 314. I have received report from ELVIS Bedolla and had the opportunity to ask questions and assume patient care.
[2021-07-13] MEDS ORDERED: iohexol 350 MG/ML 50ML vial IV ONE ×3 (07:00→07:57)
[2021-07-13] MEDS ORDERED: fentaNYL/PF 50MCG/1 ML 2ML syringe ONE ×2 (07:00→07:45)
[2021-07-13] MEDS ORDERED: midazolam 1 mg/ML 2ml injection ONE ×2 (07:00→07:45)
[2021-07-13] MEDS ORDERED: iohexol 350MG/ML 100ml bottle IV ONE ×2 (07:00→08:00)
[2021-07-13] MEDS ORDERED: LIDOcaine 1% (10mg/ml)w/preservative injection 20ml MDV ONE (07:00)
[2021-07-13] MEDS ORDERED: heparin 1,000 UNITS/NS 500ml 500 ML ONE (07:01)
[2021-07-13 07:24] LABS: BASOPHILS % (AUTO) 0.4 % (0-1); EOSINOPHILS # (AUTO) 0.1 X10'3 (0-0.9); EOSINOPHILS % (AUTO) 2.4 % (0-6); HEMATOCRIT 36.8 % (35.0-45.0); HEMOGLOBIN 12.6 g/dl (12.0-16.0); LYMPHOCYTES # (AUTO) 1.1 X10'3 (1.1-4.8); LYMPHOCYTES % (AUTO) 20.9 % (21-51); MEAN CORPUSCULAR HEMOGLOBIN 39.2 PG (27.0-31.0); MEAN CORPUSCULAR HGB CONC 34.2 g/dL (33.0-36.5); MEAN CORPUSCULAR VOLUME 114.6 FL (78-98); MEAN PLATELET VOLUME 7.4 FL (7.4-10.4); MONOCYTES # (AUTO) 0.4 X10'3 (0-0.9); MONOCYTES % (AUTO) 7.7 % (2-12); NEUTROPHILS # (AUTO) 3.6 X10'3 (1.8-7.7); NEUTROPHILS % (AUTO) 68.6 % (42-75); PLATELET COUNT 169 X10'3 (140-440); RED BLOOD COUNT 3.22 X10'6 (4.20-5.60); RED CELL DISTRIBUTION WIDTH 16.4 % (11.5-14.5); WHITE BLOOD COUNT 5.2 X10'3 (4.5-11.0)
[2021-07-13 07:40] LABS: ALANINE AMINOTRANSFERASE 112 U/L (12-78); ALBUMIN 3.2 G/DL (3.4-5.0); ALBUMIN/GLOBULIN RATIO 0.9 (1.1-1.5); ALKALINE PHOSPHATASE 61 IU/L (46-116); ANION GAP 5 (8-16); ASPARTATE AMINO TRANSFERASE 87 U/L (10-37); BILIRUBIN,TOTAL 0.6 MG/DL (0.1-1.0); BLOOD UREA NITROGEN 8 MG/DL (7-18); BUN/CREATININE RATIO 8.9 (6.6-38.0); CALCIUM 9.1 MG/DL (8.5-10.1); CHLORIDE 104 MMOL/L (99-107); GLUCOSE 121 MG/DL (70-104); MAGNESIUM 1.8 MG/DL (1.5-2.4); PHOSPHORUS 4.2 MG/DL (2.3-4.5); SODIUM 142 MMOL/L (135-145); TOTAL CARBON DIOXIDE 32.6 MMOL/L (24-32); TOTAL PROTEIN 6.9 G/DL (6.4-8.2); eGFR 72 ML/MIN
[2021-07-13] MEDS ORDERED: heparin 1,000unit/ml 10ml vial 10 ML ONE (07:52)
[2021-07-13] MEDS: K and/or MAG REPLACEMENT MC SCH (08:00)
[2021-07-13] MEDS: docusate sod 100mg capsule PO SCH ×2 (08:00→20:00)
[2021-07-13] MEDS ORDERED: furosemide 40mg/4ml inj ONE (08:13)
[2021-07-13] MEDS ORDERED: normal saline 1000ml 1,000 ML IV SCH (08:50)
[2021-07-13] MEDS ORDERED: OXAZEpam 15mg capsule PO PRN (09:00)
[2021-07-13] MEDS: buPROPion 75mg tablet PO SCH (09:46)
[2021-07-13] MEDS: thiamine 100mg tablet PO SCH (09:46)
[2021-07-13] MEDS: metoprolol succinate 25mg (24-HOUR) SR. Tablet PO SCH (09:46)
[2021-07-13] MEDS: folic acid 1mg tablet PO SCH (09:46)
[2021-07-13] MEDS: pantoprazole 40mg Tablet.DR PO SCH (09:46)
[2021-07-13] MEDS: atorvastatin 20mg tablet PO SCH (13:52)
[2021-07-13] MEDS: HYDROcodone/acetaminophen 10/325mg tab PO PRN ×3 (13:56→23:38)
[2021-07-13] MEDS ORDERED: THIA50TA10 PO (15:03)
[2021-07-13] MEDS ORDERED: FOLI0.4T6 PO (15:03)
[2021-07-13] MEDS ORDERED: NITR0.4T51 SL (15:03)
[2021-07-13] MEDS ORDERED: ATOR20TA66 PO (15:03)
[2021-07-13] MEDS ORDERED: METO-395 PO (15:03)
[2021-07-13] MEDS ORDERED: PANT40TA54 PO (15:03)
[2021-07-13] MEDS ORDERED: MULT-1085 PO (15:03)
[2021-07-13] MEDS ORDERED: ASPI-1265 PO (15:04)
[2021-07-13] MEDS ORDERED: aspirin 81mg, enteric-coated 1 TAB TABLET.DR PO ONE (15:10)
[2021-07-13 15:32] LABS: CHOL/HDL RATIO 10.9 (0.00-4.99); CHOLESTEROL 338 MG/DL (0-200); HDL CHOLESTEROL 31 MG/DL (35-60); LDL CHOLESTEROL 249 MG/DL (50-100); TRIGLYCERIDES 268 MG/DL (20-135)
[2021-07-13 15:37] LABS: CLARITY,URINE SLIGHTLY CLOUDY (Clear); GLUCOSE, URINE NEGATIVE (Neg); KETONES,URINE NEGATIVE (Neg); LEUKOCYTE ESTERASE ,URINE NEGATIVE (Neg); NITRITES, URINE POSITIVE (Neg); OCCULT BLOOD,URINE TRACE-INTACT (Neg); PROTEIN,URINE NEGATIVE (Neg); UROBILINOGEN,URINE 0.2 E.U/dL (0.2-1.0)
[2021-07-13 15:43] LABS: COLOR,URINE STRAW (Yellow); UA COLLECTION TYPE CLN CATCH MIDSTREAM
[2021-07-13 15:44] LABS: BACTERIA,URINE 4+ /HPF (Neg); MUCUS STRANDS NONE SEEN /LPF (Neg); RBC,URINE NONE SEEN /HPF (0-2); SQUAMOUS EPITHELIAL CELL,UR NONE SEEN /LPF (FEW); WBC CLUMPS,URINE FEW /HPF (NEGATIVE)
[2021-07-13 15:47] LABS: URINE AMPHETAMINE SCREEN NEGATIVE (Neg); URINE BARBITUATE SCREEN NEGATIVE (Neg); URINE BENZODIAZEPINES SCREEN POSITIVE (Neg); URINE CANNABINOID SCREEN NEGATIVE (Neg); URINE COCAINE SCREEN NEGATIVE (Neg); URINE METHADONE SCREEN NEGATIVE (Neg); URINE OPIATE SCREEN POSITIVE (Neg); URINE PHENCYCLIDINE SCREEN NEGATIVE (Neg)
[2021-07-13 17:40] LABS: URINE HCG NEGATIVE (NEG)
[2021-07-13 17:54] LABS: URINE AMPHETAMINE SCREEN NEGATIVE (Neg); URINE BARBITUATE SCREEN NEGATIVE (Neg); URINE BENZODIAZEPINES SCREEN POSITIVE (Neg); URINE CANNABINOID SCREEN NEGATIVE (Neg); URINE COCAINE SCREEN NEGATIVE (Neg); URINE METHADONE SCREEN NEGATIVE (Neg); URINE OPIATE SCREEN POSITIVE (Neg); URINE PHENCYCLIDINE SCREEN NEGATIVE (Neg)
--- NOTE | 2021-07-13 18:43 | NUR ---
Patient in room MED 314. I have received report from VINNY LEAL and had the opportunity to ask questions and assume patient care.
[2021-07-13] MEDS: CefTRIAXone/D5W-Rocephin 1gm 50 ML IV SCH (19:02)
[2021-07-13] MEDS: LORazepam 1 MG tablet PO PRN (23:39)
[2021-07-14 02:00] VITALS: BP 109/50
[2021-07-14 06:00] VITALS: BP 109/48
--- NOTE | 2021-07-14 06:36 | NUR ---
Problems reprioritized. Patient report given, questions answered & plan of care reviewed with REUBEN LEAL.
[2021-07-14 06:41] LABS: ALANINE AMINOTRANSFERASE 90 U/L (12-78); ALBUMIN 3.2 G/DL (3.4-5.0); ALBUMIN/GLOBULIN RATIO 0.8 (1.1-1.5); ALKALINE PHOSPHATASE 64 IU/L (46-116); ANION GAP 5 (8-16); ASPARTATE AMINO TRANSFERASE 47 U/L (10-37); BILIRUBIN,TOTAL 0.5 MG/DL (0.1-1.0); BLOOD UREA NITROGEN 12 MG/DL (7-18); BUN/CREATININE RATIO 13.2 (6.6-38.0); CHLORIDE 102 MMOL/L (99-107); CHOL/HDL RATIO 12.9 (0.00-4.99); CHOLESTEROL 336 MG/DL (0-200); CREATININE 0.91 MG/DL (0.40-0.90); GLUCOSE 128 MG/DL (70-104); HDL CHOLESTEROL 26 MG/DL (35-60); LDL CHOLESTEROL 248 MG/DL (50-100); MAGNESIUM 1.7 MG/DL (1.5-2.4); PHOSPHORUS 3.8 MG/DL (2.3-4.5); POTASSIUM 3.6 MMOL/L (3.5-5.1); SODIUM 140 MMOL/L (135-145); TOTAL CARBON DIOXIDE 32.9 MMOL/L (24-32); TOTAL PROTEIN 7.3 G/DL (6.4-8.2); TRIGLYCERIDES 213 MG/DL (20-135); eGFR 71 ML/MIN
[2021-07-14] MEDS ORDERED: atorvastatin 20mg tablet PO SCH (08:00)
[2021-07-14] MEDS: CefTRIAXone/D5W-Rocephin 1gm 50 ML IV SCH (08:15)
[2021-07-14] MEDS: buPROPion 75mg tablet PO SCH (08:16)
[2021-07-14] MEDS: metoprolol succinate 25mg (24-HOUR) SR. Tablet PO SCH (08:16)
[2021-07-14] MEDS: docusate sod 100mg capsule PO SCH (08:17)
[2021-07-14] MEDS: thiamine 100mg tablet PO SCH (08:17)
[2021-07-14] MEDS: pantoprazole 40mg Tablet.DR PO SCH (08:17)
[2021-07-14] MEDS: folic acid 1mg tablet PO SCH (08:17)
[2021-07-14 11:00] VITALS: BP 116/57
[2021-07-14] MEDS ORDERED: CEFD300C3 PO (11:48)
[2021-07-15] MEDS ORDERED: LORazepam 2 mg/ml vial IV PRN (00:10)
[2021-07-15] MEDS ORDERED: LORazepam 1 MG tablet PO PRN (00:10)
[2021-07-15] MEDS ORDERED: folic acid 1mg tablet PO SCH (08:00)
[2021-07-15] MEDS ORDERED: thiamine 100mg tablet PO SCH (08:00)
== END 2021-07-14 13:16 | disposition home or self-care (01) | DRG 190 ==
LOC: ER 15:52 → ED HOLD 07-11 00:20 → MED 3N 07-11 04:45
PROVIDERS: ADMIT Family Medicine; ATTEND Family Medicine
PROC: 4A02XM4 Measurement of Cardiac Total Activity, External Approach (ICD-10-PCS; principal; 2021-07-12)
PROC: 3E073KZ Introduction of Other Diagnostic Substance into Coronary Artery, Percutaneous Approach (ICD-10-PCS; 2021-07-12)
PROC: 4A023N7 Measurement of Cardiac Sampling and Pressure, Left Heart, Percutaneous Approach (ICD-10-PCS; 2021-07-13)
PROC: B2111ZZ Fluoroscopy of Multiple Coronary Arteries using Low Osmolar Contrast (ICD-10-PCS; 2021-07-13)
PROC: B2151ZZ Fluoroscopy of Left Heart using Low Osmolar Contrast (ICD-10-PCS; 2021-07-13)
PROC: B3101ZZ Fluoroscopy of Thoracic Aorta using Low Osmolar Contrast (ICD-10-PCS; 2021-07-13)
PROC: B2131ZZ Fluoroscopy of Multiple Coronary Artery Bypass Grafts using Low Osmolar Contrast (ICD-10-PCS; 2021-07-13)
DX: I21.4 Non-ST elevation (NSTEMI) myocardial infarction (principal); I50.33 Acute on chronic diastolic (congestive) heart failure; K76.0 Fatty (change of) liver, not elsewhere classified; Z95.1 Presence of aortocoronary bypass graft; E66.01 Morbid (severe) obesity due to excess calories; I11.0 Hypertensive heart disease with heart failure; E78.00 Pure hypercholesterolemia, unspecified; E78.5 Hyperlipidemia, unspecified; F10.10 Alcohol abuse, uncomplicated; F17.210 Nicotine dependence, cigarettes, uncomplicated; E28.2 Polycystic ovarian syndrome; F32.A Depression, unspecified; F41.9 Anxiety disorder, unspecified; G43.909 Migraine, unspecified, not intractable, without status migrainosus; M54.50 Low back pain, unspecified; G89.4 Chronic pain syndrome; I25.118 Atherosclerotic heart disease of native coronary artery with other forms of angina pectoris; N39.0 Urinary tract infection, site not specified; Z68.43 Body mass index [BMI] 50.0-59.9, adult; Z79.891 Long term (current) use of opiate analgesic; I25.2 Old myocardial infarction; Z82.49 Family history of ischemic heart disease and other diseases of the circulatory system; Z91.19 Patient's noncompliance with other medical treatment and regimen; Z79.899 Other long term (current) drug therapy; Z71.6 Tobacco abuse counseling; Z71.41 Alcohol abuse counseling and surveillance of alcoholic
CPT/HCPCS: 36415; 71045; 78452; 80053; 80061; 80305; 80320; 81001; 81025; 82550; 83036; 83735; 83880; 84100; 84443; 84484; 85007; 85008; 85025; 85379; 85610; 85730; 87077; 87081; 87088; 87186; 93005; 93017; 93306; 93458; 93459; 93567; 99152; 99153; 99285; A4620; A6258; A9500; C1751; C1760; C1769; G0378; J0696; J1644; J1940; J2250; J2270; J2785; J3010; J3411; J3490; Q9967

== ENCOUNTER 2021-07-22 15:58 | Emergency (ER) | payer MEDICAID ==
[~2021-07-22] VITALS: Ht 149.9 cm; Wt 113.6 kg
[~2021-07-22 15:58] MED LIST changes: +ASPI-1265 PO; -ASPI-41 PO; +ATOR20TA66 PO; -BACL10TA PO; +CEFD300C3 PO; +FOLI0.4T6 PO; -GEMF600T89 PO; -HYDR-4383 PO; +METO-395 PO; +MULT-1085 PO; -NAPR220T67 PO; +NITR0.4T51 SL; +PANT40TA54 PO; +THIA50TA10 PO
[2021-07-22 16:02] VITALS: BP 148/78
[2021-07-22] MEDS ORDERED: HYDR-3965 PO (19:56)
== END 2021-07-22 21:03 | disposition home or self-care (01) ==
LOC: ER 15:58
DX: M79.672 Pain in left foot (principal); G43.909 Migraine, unspecified, not intractable, without status migrainosus; I25.10 Atherosclerotic heart disease of native coronary artery without angina pectoris; E78.00 Pure hypercholesterolemia, unspecified; I25.2 Old myocardial infarction; F17.200 Nicotine dependence, unspecified, uncomplicated; Z95.1 Presence of aortocoronary bypass graft; Z79.899 Other long term (current) drug therapy; Z79.82 Long term (current) use of aspirin
CPT/HCPCS: 99283

== ENCOUNTER 2021-11-18 16:49 | Inpatient (IN) | payer MEDICAID ==
[~2021-11-18] VITALS: Ht 151.1 cm; Wt 102.3 kg
[~2021-11-18 16:49] MED LIST changes: -ASPI-1265 PO; -CEFD300C3 PO; -FOLI0.4T6 PO
[2021-11-18 17:08] LABS: BASOPHILS % (AUTO) 0.4 % (0-1); EOSINOPHILS % (AUTO) 0.6 % (0-6); HEMATOCRIT 38.5 % (35.0-45.0); HEMOGLOBIN 12.8 g/dl (12.0-16.0); LYMPHOCYTES # (AUTO) 1.1 X10'3 (1.1-4.8); LYMPHOCYTES % (AUTO) 15.9 % (21-51); MEAN CORPUSCULAR HEMOGLOBIN 39.3 PG (27.0-31.0); MEAN CORPUSCULAR HGB CONC 33.4 g/dL (33.0-36.5); MEAN CORPUSCULAR VOLUME 117.8 FL (78-98); MEAN PLATELET VOLUME 7.2 FL (7.4-10.4); MONOCYTES # (AUTO) 0.3 X10'3 (0-0.9); MONOCYTES % (AUTO) 4.9 % (2-12); NEUTROPHILS # (AUTO) 5.6 X10'3 (1.8-7.7); NEUTROPHILS % (AUTO) 78.2 % (42-75); PLATELET COUNT 180 X10'3 (140-440); RED BLOOD COUNT 3.27 X10'6 (4.20-5.60); RED CELL DISTRIBUTION WIDTH 17.5 % (11.5-14.5); WHITE BLOOD COUNT 7.1 X10'3 (4.5-11.0)
[2021-11-18 17:19] LABS: PLATELET ESTIMATE NORMAL
[2021-11-18 17:20] LABS: ANISOCYTOSIS 1+
[2021-11-18 17:24] LABS: ALANINE AMINOTRANSFERASE 75 U/L (12-78); ALBUMIN/GLOBULIN RATIO 0.9 (1.1-1.5); ALKALINE PHOSPHATASE 63 IU/L (46-116); ANION GAP 11 (8-16); BILIRUBIN,TOTAL 0.8 MG/DL (0.1-1.0); BLOOD UREA NITROGEN 7 MG/DL (7-18); CALCIUM 8.6 MG/DL (8.5-10.1); CHLORIDE 102 MMOL/L (99-107); CREATININE 0.87 MG/DL (0.40-0.90); GLUCOSE 138 MG/DL (70-104); SODIUM 142 MMOL/L (135-145); TOTAL CARBON DIOXIDE 29.2 MMOL/L (24-32); TOTAL PROTEIN 6.5 G/DL (6.4-8.2); eGFR 75 ML/MIN
[2021-11-18 17:25] LABS: POTASSIUM 3.9 MMOL/L (3.5-5.1)
[2021-11-18 17:26] LABS: ASPARTATE AMINO TRANSFERASE 115 U/L (10-37)
[2021-11-18] MEDS ORDERED: heparin 10,000 units/1 ML INJ IV ONE (17:40)
[2021-11-18] MEDS ORDERED: nitroGLYCERIN 1gm ointment UD TP ONE (17:40)
[2021-11-18] MEDS ORDERED: heparin 25,000 UNIT/250ml bag 250 ML IV SCH ×2 (17:40→19:30)
[2021-11-18 19:02] LABS: APTT 22 SECONDS (22-32)
[2021-11-18] MEDS ORDERED: magnesium 2GM in 50ml NS 50 ML IV PRN (19:25)
[2021-11-18] MEDS ORDERED: acetaminophen 325mg tablet PO PRN (19:25)
[2021-11-18] MEDS ORDERED: POTASSIUM BICARB 20meq eff tab 20 MEQ TABLET.EFF PO PRN (19:25)
[2021-11-18] MEDS ORDERED: magnesium 4gm in 100ml NS 100 ML IV PRN (19:25)
[2021-11-18] MEDS ORDERED: potassium CL 10mEq/100ml bag 100 ML IV PRN (19:25)
[2021-11-18] MEDS ORDERED: ondansetron/PF 4mg/2ml inj IV PRN (19:25)
--- NOTE | 2021-11-18 19:29 | NUR ---
PT BLOOD PRESSURE DROPPED TO 81/51. MOVED CUFF TO R ARM CURRENT BP 99/55
[2021-11-18] MEDS ORDERED: heparin 10,000 units/1 ML INJ IV PRN (19:30)
[2021-11-18] MEDS ORDERED: normal saline 1000ML IV soln IVB ONE ×2 (19:35→20:55)
--- NOTE | 2021-11-18 19:37 | NUR ---
SPOKE TO ADMITTING MD REGARDING BLOOD PRESSURE AND MAP OF 61. MD OKAYD MAP OF 65 AND GREATER, VERBALLY ORDERED 250ML BOLUS NS.
[2021-11-18] MEDS ORDERED: ATOR40TA7 PO (19:53)
[2021-11-18] MEDS ORDERED: ESCI20TA39 PO (19:53)
[2021-11-18] MEDS ORDERED: ASPI-1144 PO (19:53)
[2021-11-18] MEDS ORDERED: METO-395 PO (19:53)
[2021-11-18] MEDS: K and/or MAG REPLACEMENT MC SCH (20:00)
[2021-11-18 20:37] LABS: MAGNESIUM 1.3 MG/DL (1.5-2.4); POTASSIUM 3.4 MMOL/L (3.5-5.1)
[2021-11-18 21:46] VITALS: BP 101/55
[2021-11-18 22:24] VITALS: BP 108/66
--- NOTE | 2021-11-18 23:27 | NUR ---
Patient complains of worsening chest pain and left arm numbness. Repeated EKG and paged Dr. Gardner to interpret EKG.
[2021-11-19] MEDS ORDERED: traMADol 50MG tablet PO ONE
[2021-11-19] MEDS: heparin 25,000 UNIT/250ml bag 250 ML IV SCH ×2 (00:18→13:53)
[2021-11-19] MEDS: magnesium Cl slow-release 64mg tablet PO PRN ×2 (01:21→09:58)
[2021-11-19] MEDS: POTASSIUM BICARB 20meq eff tab 20 MEQ TABLET.EFF PO PRN ×2 (01:22→05:32)
[2021-11-19 01:59] LABS: APTT 21 SECONDS (22-32)
[2021-11-19] MEDS: heparin 10,000 units/1 ML INJ IV PRN ×3 (02:14→17:31)
[2021-11-19 03:00] VITALS: BP 106/57
--- NOTE | 2021-11-19 06:33 | NUR ---
Patient in room PCU 3016. I have received report from Collette LEAL and had the opportunity to ask questions and assume patient care.
[2021-11-19 07:00] VITALS: BP 133/77
[2021-11-19 07:01] LABS: BASOPHILS % (AUTO) 0.2 % (0-1); EOSINOPHILS # (AUTO) 0.1 X10'3 (0-0.9); EOSINOPHILS % (AUTO) 0.9 % (0-6); HEMATOCRIT 34.7 % (35.0-45.0); HEMOGLOBIN 11.6 g/dl (12.0-16.0); LYMPHOCYTES # (AUTO) 1.4 X10'3 (1.1-4.8); LYMPHOCYTES % (AUTO) 24.4 % (21-51); MEAN CORPUSCULAR HEMOGLOBIN 39.7 PG (27.0-31.0); MEAN CORPUSCULAR HGB CONC 33.4 g/dL (33.0-36.5); MEAN CORPUSCULAR VOLUME 118.9 FL (78-98); MEAN PLATELET VOLUME 7.2 FL (7.4-10.4); MONOCYTES # (AUTO) 0.4 X10'3 (0-0.9); MONOCYTES % (AUTO) 6.2 % (2-12); NEUTROPHILS % (AUTO) 68.3 % (42-75); PLATELET COUNT 143 X10'3 (140-440); RED BLOOD COUNT 2.92 X10'6 (4.20-5.60); RED CELL DISTRIBUTION WIDTH 17.3 % (11.5-14.5); WHITE BLOOD COUNT 5.9 X10'3 (4.5-11.0)
[2021-11-19 07:36] LABS: ALBUMIN 2.9 G/DL (3.4-5.0); ANION GAP 5 (8-16); BLOOD UREA NITROGEN 9 MG/DL (7-18); BUN/CREATININE RATIO 10.5 (6.6-38.0); CHLORIDE 104 MMOL/L (99-107); CREATININE 0.86 MG/DL (0.40-0.90); GLUCOSE 122 MG/DL (70-104); MAGNESIUM 1.3 MG/DL (1.5-2.4); POTASSIUM 3.6 MMOL/L (3.5-5.1); SODIUM 141 MMOL/L (135-145); TOTAL CARBON DIOXIDE 31.6 MMOL/L (24-32); eGFR 76 ML/MIN
[2021-11-19] MEDS: K and/or MAG REPLACEMENT MC SCH ×2 (08:00→19:07)
[2021-11-19 11:00] VITALS: BP 123/71
[2021-11-19] MEDS ORDERED: iohexol 350 MG/ML 50ML vial IV ONE (12:50)
[2021-11-19 14:07] LABS: URINE AMPHETAMINE SCREEN NEGATIVE (Neg); URINE BARBITUATE SCREEN NEGATIVE (Neg); URINE BENZODIAZEPINES SCREEN NEGATIVE (Neg); URINE CANNABINOID SCREEN NEGATIVE (Neg); URINE COCAINE SCREEN NEGATIVE (Neg); URINE METHADONE SCREEN NEGATIVE (Neg); URINE OPIATE SCREEN NEGATIVE (Neg); URINE PHENCYCLIDINE SCREEN NEGATIVE (Neg)
[2021-11-19 14:16] LABS: CHOL/HDL RATIO 10.3 (0.00-4.99); CHOLESTEROL 309 MG/DL (0-200); HDL CHOLESTEROL 30 MG/DL (35-60); LDL CHOLESTEROL 210 MG/DL (50-100); TRIGLYCERIDES 276 MG/DL (20-135)
[2021-11-19 15:00] VITALS: BP 112/64
--- NOTE | 2021-11-19 18:06 | NUR ---
Problems reprioritized. Patient report given, questions answered & plan of care reviewed with Liberty LEAL. Patient resting in bed in no acute distress.
[2021-11-19 18:30] VITALS: BP 95/53
--- NOTE | 2021-11-19 19:58 | NUR ---
pt admitted for NSTEMI. c/o 6/10 chest pain/tightness, numbness down towards left arm. VSS. BP 115/60 HR 80. 94 on RA, placed on 2L NC for comfort, pt stating hard to take deep breathe with chest pain. EKG obtained. MD Oden paged. EKG placed in chart. no prns available. hemodialysis charge nurse aware. plan for cardiac cath tmrw. wctm Addendum: 11/19/21 at 2130 by Liberty Lehman RN pt still c/o 6/10 chest soreness, tightness has improved slightly. still no prns available. MD Patel re-paged. awaiting call back
[2021-11-19 22:51] VITALS: BP 99/64
[2021-11-20] VITALS (11 sets, daily range): BP systolic 87–122; BP diastolic 37–76
[2021-11-20] MEDS: heparin 10,000 units/1 ML INJ IV PRN ×2 (00:19→09:09)
[2021-11-20] MEDS: heparin 25,000 UNIT/250ml bag 250 ML IV SCH (05:18)
--- NOTE | 2021-11-20 06:20 | NUR ---
Patient in room PCU 3016. I have received report from Liberty LEAL and had the opportunity to ask questions and assume patient care.
[2021-11-20 06:35] LABS: BASOPHILS % (AUTO) 0.3 % (0-1); EOSINOPHILS # (AUTO) 0.1 X10'3 (0-0.9); EOSINOPHILS % (AUTO) 1.1 % (0-6); HEMATOCRIT 34.6 % (35.0-45.0); HEMOGLOBIN 11.6 g/dl (12.0-16.0); LYMPHOCYTES % (AUTO) 22.3 % (21-51); MEAN CORPUSCULAR HEMOGLOBIN 40.3 PG (27.0-31.0); MEAN CORPUSCULAR HGB CONC 33.6 g/dL (33.0-36.5); MEAN PLATELET VOLUME 7.1 FL (7.4-10.4); MONOCYTES # (AUTO) 0.3 X10'3 (0-0.9); MONOCYTES % (AUTO) 6.5 % (2-12); NEUTROPHILS # (AUTO) 3.3 X10'3 (1.8-7.7); NEUTROPHILS % (AUTO) 69.8 % (42-75); PLATELET COUNT 150 X10'3 (140-440); RED BLOOD COUNT 2.89 X10'6 (4.20-5.60); RED CELL DISTRIBUTION WIDTH 17.1 % (11.5-14.5); WHITE BLOOD COUNT 4.7 X10'3 (4.5-11.0)
[2021-11-20 07:13] LABS: ALBUMIN 2.9 G/DL (3.4-5.0); ANION GAP 10 (8-16); BLOOD UREA NITROGEN 7 MG/DL (7-18); BUN/CREATININE RATIO 8.5 (6.6-38.0); CALCIUM 8.2 MG/DL (8.5-10.1); CHLORIDE 103 MMOL/L (99-107); CREATININE 0.82 MG/DL (0.40-0.90); GLUCOSE 120 MG/DL (70-104); MAGNESIUM 1.5 MG/DL (1.5-2.4); POTASSIUM 3.5 MMOL/L (3.5-5.1); SODIUM 143 MMOL/L (135-145); TOTAL CARBON DIOXIDE 30.1 MMOL/L (24-32); eGFR 80 ML/MIN
[2021-11-20] MEDS: K and/or MAG REPLACEMENT MC SCH ×2 (08:00→20:00)
[2021-11-20] MEDS: aspirin 81mg tab.chew PO SCH (09:03)
[2021-11-20] MEDS: metoprolol tartrate 12.5mg (1/2 tablet) PO SCH (09:03)
[2021-11-20] MEDS: atorvastatin 20mg tablet PO SCH (09:03)
[2021-11-20] MEDS: ESCITALOPRAM OXALATE 5 MG TABLET PO SCH (09:04)
[2021-11-20] MEDS ORDERED: HYDROcodone/acetaminophen 5mg/325mg tablet PO PRN (10:00)
[2021-11-20] MEDS ORDERED: midazolam 1 mg/ML 2ml injection ONE ×2 (15:51→16:29)
[2021-11-20] MEDS ORDERED: fentaNYL/PF 50MCG/1 ML 2ML syringe ONE (15:51)
[2021-11-20] MEDS ORDERED: LIDOCAINE 1% w/preservative (10 MG/ML) inj. 10mL VIAL ONE (15:51)
[2021-11-20] MEDS ORDERED: iohexol 350MG/ML 100ml bottle IV ONE (15:52)
[2021-11-20] MEDS ORDERED: nitroGLYCERIN-Tridil 50MG/D5W 250 ML IV ONE (16:37)
[2021-11-20] MEDS ORDERED: iohexol 350 MG/ML 50ML vial IV ONE ×2 (16:40→16:46)
[2021-11-20] MEDS ORDERED: heparin 1,000unit/ml 10ml vial 10 ML ONE (16:43)
[2021-11-20] MEDS ORDERED: aspirin 325mg tablet ONE (16:44)
[2021-11-20] MEDS ORDERED: ticagrelor 90mg tablet ONE (16:44)
[2021-11-20] MEDS: HYDROcodone/acetaminophen 10/325mg tab PO PRN ×2 (17:42→21:20)
--- NOTE | 2021-11-20 18:30 | NUR ---
Problems reprioritized. Patient report given, questions answered & plan of care reviewed with Yanet Delgado, patient stable at transfer of care.
[2021-11-20 20:35] LABS: BASOPHILS % (AUTO) 0.5 % (0-1); EOSINOPHILS # (AUTO) 0.1 X10'3 (0-0.9); EOSINOPHILS % (AUTO) 1.4 % (0-6); HEMATOCRIT 33.3 % (35.0-45.0); HEMOGLOBIN 11.1 g/dl (12.0-16.0); LYMPHOCYTES # (AUTO) 1.1 X10'3 (1.1-4.8); MEAN CORPUSCULAR HEMOGLOBIN 39.6 PG (27.0-31.0); MEAN CORPUSCULAR HGB CONC 33.1 g/dL (33.0-36.5); MEAN CORPUSCULAR VOLUME 119.4 FL (78-98); MEAN PLATELET VOLUME 6.7 FL (7.4-10.4); MONOCYTES # (AUTO) 0.2 X10'3 (0-0.9); MONOCYTES % (AUTO) 5.4 % (2-12); NEUTROPHILS # (AUTO) 2.7 X10'3 (1.8-7.7); NEUTROPHILS % (AUTO) 66.7 % (42-75); PLATELET COUNT 154 X10'3 (140-440); RED BLOOD COUNT 2.79 X10'6 (4.20-5.60); RED CELL DISTRIBUTION WIDTH 17.2 % (11.5-14.5); WHITE BLOOD COUNT 4.1 X10'3 (4.5-11.0)
--- NOTE | 2021-11-20 20:35 | NUR ---
at aprox 2015 Patient complained of rt side facial and tongue numbness, tingling. A and O x 4, no facial droop, speech clear, no drift with arm or leg lift. able to track. Stated right side vision blurry for about 3 minutes. Stroke protocol in place. Labs drawn, Pt taken for CT at this time.
--- NOTE | 2021-11-20 20:47 | NUR ---
Back from CT
[2021-11-20 20:50] LABS: APTT 50 SECONDS (22-32)
[2021-11-20 20:52] LABS: ALANINE AMINOTRANSFERASE 71 U/L (12-78); ALBUMIN 2.8 G/DL (3.4-5.0); ALBUMIN/GLOBULIN RATIO 0.8 (1.1-1.5); ALKALINE PHOSPHATASE 55 IU/L (46-116); ANION GAP 2 (8-16); ASPARTATE AMINO TRANSFERASE 91 U/L (10-37); BILIRUBIN,TOTAL 0.7 MG/DL (0.1-1.0); BLOOD UREA NITROGEN 7 MG/DL (7-18); BUN/CREATININE RATIO 9.1 (6.6-38.0); CALCIUM 8.2 MG/DL (8.5-10.1); CHLORIDE 104 MMOL/L (99-107); CREATININE 0.77 MG/DL (0.40-0.90); GLUCOSE 98 MG/DL (70-104); POTASSIUM 3.9 MMOL/L (3.5-5.1); SODIUM 140 MMOL/L (135-145); TOTAL PROTEIN 6.2 G/DL (6.4-8.2); eGFR 86 ML/MIN
[2021-11-20 20:59] LABS: ANISOCYTOSIS 1+; PLATELET ESTIMATE NORMAL
[2021-11-20 21:00] LABS: POLYCHROMASIA FEW
--- NOTE | 2021-11-20 21:00 | NUR ---
the right side has numbness and tingling both to arm and leg but not the face, the left side only has numbness to arm and leg not face no tingling and this has been going on for a week. Addendum: 11/20/21 at 2130 by Margarita Elliott RN Amended: Links added.
--- NOTE | 2021-11-20 21:25 | NUR ---
Telemed assessment done by neurologist and she gave verbal consent to do the telemedicine evaluation.
--- NOTE | 2021-11-20 21:30 | NUR ---
I spoke to Dr. Gorman and he gave a recommendation of migraine cocktail and mri of brain and cspine in this visit. I gave him Dr. Mack's cell number at this time and was also able to give him more information about the patient's cardiac history and that she just had a cardiac cath with stent today to the RCA per patient's nurse.
[2021-11-20] MEDS ORDERED: diphenhydrAMINE 50 mg/ml inj IV ONE (23:30)
[2021-11-20] MEDS ORDERED: ketorolac trometh. 30mg/ml inj. IV ONE (23:30)
[2021-11-20] MEDS ORDERED: ondansetron/PF 4mg/2ml inj IM ONE (23:30)
[2021-11-21 02:00] VITALS: BP 139/67
[2021-11-21] MEDS: HYDROcodone/acetaminophen 10/325mg tab PO PRN (03:43)
[2021-11-21 06:00] VITALS: BP 109/56
--- NOTE | 2021-11-21 06:24 | NUR ---
Patient in room PCU 3016. I have received report from Yanet LEAL and had the opportunity to ask questions and assume patient care.
[2021-11-21 06:37] LABS: BASOPHILS % (AUTO) 0.3 % (0-1); EOSINOPHILS # (AUTO) 0.1 X10'3 (0-0.9); EOSINOPHILS % (AUTO) 1.3 % (0-6); HEMATOCRIT 35.9 % (35.0-45.0); HEMOGLOBIN 11.9 g/dl (12.0-16.0); LYMPHOCYTES # (AUTO) 0.8 X10'3 (1.1-4.8); LYMPHOCYTES % (AUTO) 17.9 % (21-51); MEAN CORPUSCULAR HEMOGLOBIN 40.1 PG (27.0-31.0); MEAN CORPUSCULAR HGB CONC 33.3 g/dL (33.0-36.5); MEAN CORPUSCULAR VOLUME 120.6 FL (78-98); MONOCYTES # (AUTO) 0.3 X10'3 (0-0.9); MONOCYTES % (AUTO) 7.2 % (2-12); NEUTROPHILS # (AUTO) 3.2 X10'3 (1.8-7.7); NEUTROPHILS % (AUTO) 73.3 % (42-75); PLATELET COUNT 195 X10'3 (140-440); RED BLOOD COUNT 2.97 X10'6 (4.20-5.60); RED CELL DISTRIBUTION WIDTH 17.1 % (11.5-14.5); WHITE BLOOD COUNT 4.3 X10'3 (4.5-11.0)
[2021-11-21 06:54] LABS: ALBUMIN 3.2 G/DL (3.4-5.0); ANION GAP 3 (8-16); BLOOD UREA NITROGEN 10 MG/DL (7-18); CHLORIDE 100 MMOL/L (99-107); GLUCOSE 104 MG/DL (70-104); MAGNESIUM 1.4 MG/DL (1.5-2.4); POTASSIUM 3.5 MMOL/L (3.5-5.1); SODIUM 138 MMOL/L (135-145); eGFR 63 ML/MIN
[2021-11-21] MEDS: magnesium Cl slow-release 64mg tablet PO PRN (07:56)
[2021-11-21] MEDS: metoprolol tartrate 12.5mg (1/2 tablet) PO SCH (07:56)
[2021-11-21] MEDS: ESCITALOPRAM OXALATE 5 MG TABLET PO SCH (07:57)
[2021-11-21] MEDS: HYDROcodone/acetaminophen 5mg/325mg tablet PO PRN ×2 (07:57→13:35)
[2021-11-21] MEDS: aspirin 81mg tab.chew PO SCH (07:58)
[2021-11-21] MEDS: atorvastatin 20mg tablet PO SCH (07:58)
[2021-11-21] MEDS ORDERED: ticagrelor 90mg tablet PO SCH (08:00)
[2021-11-21] MEDS: K and/or MAG REPLACEMENT MC SCH (08:00)
[2021-11-21 11:00] VITALS: BP 99/67
[2021-11-21] MEDS ORDERED: TICA90TA PO (11:53)
--- NOTE | 2021-11-21 16:48 | NUR ---
Patient stable for discharge per Dr. Stoddard orders. All discharge instructions reviewed with the patient and all questions answered. Shira picked up from pharmacy from neighbor and brought to patient before discharge. All belongings collected and sent with patient. PIV discontinued, cannula intact. Tele discontinued. Wheeled to lobby via nursing staff, picked up by friend.
== END 2021-11-21 15:06 | disposition home or self-care (01) | DRG 174 ==
LOC: ER 16:50 → ED HOLD 19:26 → PCU 3S 21:20
PROVIDERS: ADMIT Internal Medicine; ATTEND Internal Medicine
PROC: B32T1ZZ Computerized Tomography (CT Scan) of Left Pulmonary Artery using Low Osmolar Contrast (ICD-10-PCS; 2021-11-19)
PROC: B3201ZZ Computerized Tomography (CT Scan) of Thoracic Aorta using Low Osmolar Contrast (ICD-10-PCS; 2021-11-19)
PROC: B32S1ZZ Computerized Tomography (CT Scan) of Right Pulmonary Artery using Low Osmolar Contrast (ICD-10-PCS; 2021-11-19)
PROC: 4A023N7 Measurement of Cardiac Sampling and Pressure, Left Heart, Percutaneous Approach (ICD-10-PCS; principal; 2021-11-20)
PROC: 027034Z Dilation of Coronary Artery, One Artery with Drug-eluting Intraluminal Device, Percutaneous Approach (ICD-10-PCS; 2021-11-20)
PROC: B2111ZZ Fluoroscopy of Multiple Coronary Arteries using Low Osmolar Contrast (ICD-10-PCS; 2021-11-20)
PROC: B2151ZZ Fluoroscopy of Left Heart using Low Osmolar Contrast (ICD-10-PCS; 2021-11-20)
PROC: B2131ZZ Fluoroscopy of Multiple Coronary Artery Bypass Grafts using Low Osmolar Contrast (ICD-10-PCS; 2021-11-20)
PROC: B41F1ZZ Fluoroscopy of Right Lower Extremity Arteries using Low Osmolar Contrast (ICD-10-PCS; 2021-11-20)
DX: I21.4 Non-ST elevation (NSTEMI) myocardial infarction (principal); E28.2 Polycystic ovarian syndrome; Z95.1 Presence of aortocoronary bypass graft; E78.00 Pure hypercholesterolemia, unspecified; E78.5 Hyperlipidemia, unspecified; F32.A Depression, unspecified; F41.9 Anxiety disorder, unspecified; G43.909 Migraine, unspecified, not intractable, without status migrainosus; I25.110 Atherosclerotic heart disease of native coronary artery with unstable angina pectoris; I25.2 Old myocardial infarction; Z80.8 Family history of malignant neoplasm of other organs or systems; Z82.49 Family history of ischemic heart disease and other diseases of the circulatory system; Z87.440 Personal history of urinary (tract) infections; Z79.899 Other long term (current) drug therapy
CPT/HCPCS: 36415; 70450; 71045; 71275; 80048; 80053; 80061; 80305; 82948; 83735; 83880; 84132; 84484; 85008; 85025; 85610; 85730; 87081; 93005; 93306; 93459; 96374; 99152; 99153; 99285; A4620; A6258; C1725; C1751; C1760; C1769; C1874; C1894; C9600; G0378; J1200; J1644; J1885; J2250; J2405; J3010; J3475; J3490; J7030; Q9967

== ENCOUNTER 2021-11-27 22:24 | Emergency (ER) | payer MEDICAID ==
[~2021-11-27] VITALS: Ht 149.9 cm; Wt 102.2 kg
[~2021-11-27 22:24] MED LIST changes: +ASPI-1144 PO; -ATOR20TA66 PO; +ATOR40TA7 PO; -ESCI20TA PO; +ESCI20TA39 PO; -MULT-1085 PO; -NITR0.4T51 SL; -PANT40TA54 PO; -THIA50TA10 PO; +TICA90TA PO
[2021-11-27 22:27] VITALS: BP 130/81
--- NOTE | 2021-11-27 22:45 | NUR ---
no answer call #1
--- NOTE | 2021-11-27 23:11 | NUR ---
no answer call #2
--- NOTE | 2021-11-28 00:31 | NUR ---
NO ANSWER CALL #3
== END 2021-11-28 00:42 | disposition left against medical advice (07) ==
LOC: ER 22:25
DX: I10 Essential (primary) hypertension (principal); Z53.21 Procedure and treatment not carried out due to patient leaving prior to being seen by health care provider

== ENCOUNTER 2021-12-06 14:29 | Inpatient (IN) | payer MEDICAID ==
[~2021-12-06] VITALS: Ht 152.4 cm; Wt 101.8 kg
--- NOTE | 2021-12-06 17:30 | NUR ---
Pt states she is numb all over and feels like she has lost control of limbs.
[2021-12-06 17:55] LABS: BASOPHILS # (AUTO) 0.1 X10'3 (0-0.2); BASOPHILS % (AUTO) 1.3 % (0-1); EOSINOPHILS % (AUTO) 0.3 % (0-6); HEMATOCRIT 43.5 % (35.0-45.0); HEMOGLOBIN 14.4 g/dl (12.0-16.0); LYMPHOCYTES # (AUTO) 1.3 X10'3 (1.1-4.8); LYMPHOCYTES % (AUTO) 16.1 % (21-51); MEAN CORPUSCULAR HEMOGLOBIN 38.5 PG (27.0-31.0); MEAN CORPUSCULAR VOLUME 116.7 FL (78-98); MONOCYTES # (AUTO) 0.4 X10'3 (0-0.9); MONOCYTES % (AUTO) 4.8 % (2-12); NEUTROPHILS # (AUTO) 6.1 X10'3 (1.8-7.7); NEUTROPHILS % (AUTO) 77.5 % (42-75); PLATELET COUNT 301 X10'3 (140-440); RED BLOOD COUNT 3.73 X10'6 (4.20-5.60); WHITE BLOOD COUNT 7.9 X10'3 (4.5-11.0)
[2021-12-06 18:08] LABS: ALANINE AMINOTRANSFERASE 68 U/L (12-78); ALBUMIN 3.8 G/DL (3.4-5.0); ALBUMIN/GLOBULIN RATIO 1.1 (1.1-1.5); ALKALINE PHOSPHATASE 68 IU/L (46-116); ANION GAP 9 (8-16); ASPARTATE AMINO TRANSFERASE 81 U/L (10-37); BILIRUBIN,TOTAL 1.2 MG/DL (0.1-1.0); BLOOD UREA NITROGEN 10 MG/DL (7-18); BUN/CREATININE RATIO 9.3 (6.6-38.0); CALCIUM 8.6 MG/DL (8.5-10.1); CHLORIDE 100 MMOL/L (99-107); CREATININE 1.07 MG/DL (0.40-0.90); GLUCOSE 113 MG/DL (70-104); POTASSIUM 3.4 MMOL/L (3.5-5.1); SODIUM 141 MMOL/L (135-145); TOTAL CARBON DIOXIDE 32.3 MMOL/L (24-32); TOTAL PROTEIN 7.4 G/DL (6.4-8.2); eGFR 59 ML/MIN
[2021-12-06 18:09] LABS: APTT 23 SECONDS (22-32)
[2021-12-06 18:12] LABS: HCG SERUM QL NEGATIVE
[2021-12-06 18:16] LABS: ETHANOL < 0.010 GM/DL (0.0-0.010); MAGNESIUM 1.2 MG/DL (1.5-2.4)
[2021-12-06 18:33] LABS: C-REACTIVE PROTEIN < 0.05 MG/DL (0.0-0.5)
--- NOTE | 2021-12-06 19:18 | NUR ---
telemed consult in progress
[2021-12-06] MEDS ORDERED: thiamine 100mg/ml 2ml inj. IV ONE (19:30)
[2021-12-06] MEDS ORDERED: acetaminophen 325mg tablet PO ONE ×2 (19:35→19:55)
[2021-12-06] MEDS ORDERED: thiamine inj. 500 MG in normal saline 100ml IV soln 100 ML IV ONE (19:40)
--- NOTE | 2021-12-06 20:06 | NUR ---
This RN called pharmacy, they are still working on thiamine drip
[2021-12-06] MEDS ORDERED: acetaminophen 325mg tablet PO PRN (20:25)
[2021-12-06] MEDS ORDERED: magnesium hydroxide 30ml (MOM) UD suspension PO PRN (20:25)
[2021-12-06] MEDS ORDERED: ondansetron/PF 4mg/2ml inj IV PRN (20:25)
[2021-12-06] MEDS ORDERED: mag hydrox/Alum hydrox/simeth 30ml oral suspension PO PRN (20:25)
[2021-12-06 21:19] LABS: PLATELET ESTIMATE NORMAL
[2021-12-06 21:20] LABS: ANISOCYTOSIS FEW
[2021-12-06 21:21] LABS: STOMATOCYTES 2+
[2021-12-06 21:36] LABS: POLYCHROMASIA FEW
[2021-12-07 02:20] LABS: BASOPHILS % (AUTO) 0.4 % (0-1); EOSINOPHILS # (AUTO) 0.1 X10'3 (0-0.9); EOSINOPHILS % (AUTO) 1.2 % (0-6); HEMOGLOBIN 13.5 g/dl (12.0-16.0); LYMPHOCYTES # (AUTO) 1.4 X10'3 (1.1-4.8); LYMPHOCYTES % (AUTO) 22.9 % (21-51); MEAN CORPUSCULAR HEMOGLOBIN 39.6 PG (27.0-31.0); MEAN CORPUSCULAR HGB CONC 33.7 g/dL (33.0-36.5); MEAN CORPUSCULAR VOLUME 117.6 FL (78-98); MEAN PLATELET VOLUME 7.3 FL (7.4-10.4); MONOCYTES # (AUTO) 0.4 X10'3 (0-0.9); MONOCYTES % (AUTO) 6.4 % (2-12); NEUTROPHILS # (AUTO) 4.4 X10'3 (1.8-7.7); NEUTROPHILS % (AUTO) 69.1 % (42-75); PLATELET COUNT 267 X10'3 (140-440); RED CELL DISTRIBUTION WIDTH 15.7 % (11.5-14.5); WHITE BLOOD COUNT 6.3 X10'3 (4.5-11.0)
--- NOTE | 2021-12-07 02:28 | NUR ---
PT O2 SATURATION DIPPED DOWN TO 81% WHILE PT WAS SLEEPING. RN STARTED HER ON 2L NC 02. 02 SATURATION CAME UP TO 92%. PT STATED THAT THIS IS "NORMAL FOR HER" WHILE SLEEPING AND SHE "THINKS SHE HAS SLEEP APNEA."
[2021-12-07 02:48] LABS: ALANINE AMINOTRANSFERASE 53 U/L (12-78); ALBUMIN 3.4 G/DL (3.4-5.0); ALBUMIN/GLOBULIN RATIO 1.1 (1.1-1.5); ALKALINE PHOSPHATASE 59 IU/L (46-116); ANION GAP 9 (8-16); ASPARTATE AMINO TRANSFERASE 63 U/L (10-37); BILIRUBIN,TOTAL 0.9 MG/DL (0.1-1.0); BLOOD UREA NITROGEN 13 MG/DL (7-18); BUN/CREATININE RATIO 12.7 (6.6-38.0); CALCIUM 8.5 MG/DL (8.5-10.1); CHLORIDE 99 MMOL/L (99-107); CREATININE 1.02 MG/DL (0.40-0.90); GLUCOSE 119 MG/DL (70-104); POTASSIUM 3.4 MMOL/L (3.5-5.1); SODIUM 140 MMOL/L (135-145); TOTAL CARBON DIOXIDE 32.5 MMOL/L (24-32); TOTAL PROTEIN 6.6 G/DL (6.4-8.2); eGFR 62 ML/MIN
[2021-12-07 02:57] LABS: PLATELET ESTIMATE NORMAL
[2021-12-07 02:59] LABS: STOMATOCYTES 1+
--- NOTE | 2021-12-07 06:49 | NUR ---
Pt sleeping, no apparent distress or needs at this time.
[2021-12-07] MEDS: aspirin 81mg tab.chew PO SCH (08:19)
[2021-12-07] MEDS: metoprolol succinate 25mg (24-HOUR) SR. Tablet PO SCH (08:20)
[2021-12-07] MEDS: ticagrelor 90mg tablet PO SCH ×2 (08:21→20:34)
[2021-12-07] MEDS: atorvastatin 20mg tablet PO SCH (08:21)
[2021-12-07] MEDS: docusate sod 100mg capsule PO SCH ×2 (08:22→20:34)
[2021-12-07] MEDS: ESCITALOPRAM OXALATE 5 MG TABLET PO SCH (08:22)
[2021-12-07] MEDS: heparin, porcine 5000 units/ml vial SQ SCH ×2 (08:25→20:35)
--- NOTE | 2021-12-07 08:26 | NUR ---
Pt states she feels better after "IV vitamin they gave me-thiamine." Pt not as shaky this morning.
--- NOTE | 2021-12-07 10:11 | NUR ---
Pt sleeping, no apparent distress or needs.
--- NOTE | 2021-12-07 12:00 | NUR ---
Updated pt and family on plan of care. Pt was wondering if she would be getting an MRI. There is no order for MRI, pt updated. Family at bedside.
--- NOTE | 2021-12-07 14:02 | NUR ---
Pt O2 68% with a good pleth while pt is sleeping. Placed pt on 2L via NC, and she is now 95%
--- NOTE | 2021-12-07 14:56 | NUR ---
Pt c/o feeling shaky again. paged.
--- NOTE | 2021-12-07 16:54 | NUR ---
Pt sleeping on BP cuff arm. Pt stable, no apparent distress or needs at this time.
[2021-12-07 19:55] VITALS: BP 132/80
--- NOTE | 2021-12-07 19:55 | NUR ---
PATIENT ADMITTED TO ROOM 4024B FROM ER FOR ATAXIA. PLACED COMFORTABLE IN BED. VITAL SIGNS TAKEN AND RECORDED.
[2021-12-07] MEDS: HYDROcodone/acetaminophen 5mg/325mg tablet PO PRN (20:56)
[2021-12-07 22:00] VITALS: BP 122/79
[2021-12-08] MEDS: HYDROcodone/acetaminophen 5mg/325mg tablet PO PRN ×5 (01:13→21:51)
[2021-12-08 06:00] VITALS: BP 135/76
--- NOTE | 2021-12-08 06:30 | NUR ---
Problems reprioritized. Patient report given, questions answered & plan of care reviewed with EVELIO RN.
--- NOTE | 2021-12-08 06:55 | NUR ---
Patient in room ORTHO 4024. I have received report from Willy LEAL and had the opportunity to ask questions and assume patient care.
[2021-12-08] MEDS: aspirin 81mg tab.chew PO SCH (08:34)
[2021-12-08] MEDS: atorvastatin 20mg tablet PO SCH (08:35)
[2021-12-08] MEDS: docusate sod 100mg capsule PO SCH ×2 (08:36→21:02)
[2021-12-08] MEDS: metoprolol succinate 25mg (24-HOUR) SR. Tablet PO SCH (08:36)
[2021-12-08] MEDS: ESCITALOPRAM OXALATE 5 MG TABLET PO SCH (08:36)
[2021-12-08] MEDS: ticagrelor 90mg tablet PO SCH ×2 (08:36→21:02)
[2021-12-08] MEDS: heparin, porcine 5000 units/ml vial SQ SCH ×2 (08:40→21:02)
[2021-12-08 10:00] VITALS: BP 122/70
[2021-12-08 18:00] VITALS: BP 116/56
--- NOTE | 2021-12-08 18:22 | NUR ---
Problems reprioritized. Patient report given, questions answered & plan of care reviewed with Willy LEAL.
--- NOTE | 2021-12-08 18:30 | NUR ---
Patient in room ORTHO 4024. I have received report from EVELIO LEAL and had the opportunity to ask questions and assume patient care.
[2021-12-08 22:00] VITALS: BP 128/92
[2021-12-09] MEDS: HYDROcodone/acetaminophen 5mg/325mg tablet PO PRN ×4 (05:53→19:59)
--- NOTE | 2021-12-09 06:28 | NUR ---
Problems reprioritized. Patient report given, questions answered & plan of care reviewed with EVELIO RN.
[2021-12-09 06:48] LABS: BASOPHILS % (AUTO) 0.4 % (0-1); EOSINOPHILS # (AUTO) 0.1 X10'3 (0-0.9); EOSINOPHILS % (AUTO) 2.1 % (0-6); HEMATOCRIT 40.5 % (35.0-45.0); LYMPHOCYTES % (AUTO) 22.9 % (21-51); MEAN CORPUSCULAR HEMOGLOBIN 38.5 PG (27.0-31.0); MEAN CORPUSCULAR HGB CONC 32.2 g/dL (33.0-36.5); MEAN CORPUSCULAR VOLUME 119.4 FL (78-98); MEAN PLATELET VOLUME 7.6 FL (7.4-10.4); MONOCYTES # (AUTO) 0.3 X10'3 (0-0.9); MONOCYTES % (AUTO) 6.5 % (2-12); NEUTROPHILS # (AUTO) 3.1 X10'3 (1.8-7.7); NEUTROPHILS % (AUTO) 68.1 % (42-75); PLATELET COUNT 220 X10'3 (140-440); RED BLOOD COUNT 3.39 X10'6 (4.20-5.60); RED CELL DISTRIBUTION WIDTH 15.4 % (11.5-14.5); WHITE BLOOD COUNT 4.5 X10'3 (4.5-11.0)
[2021-12-09 06:50] LABS: ALANINE AMINOTRANSFERASE 74 U/L (12-78); ALBUMIN 3.3 G/DL (3.4-5.0); ALBUMIN/GLOBULIN RATIO 0.9 (1.1-1.5); ALKALINE PHOSPHATASE 51 IU/L (46-116); ANION GAP 4 (8-16); ASPARTATE AMINO TRANSFERASE 94 U/L (10-37); BILIRUBIN,TOTAL 0.5 MG/DL (0.1-1.0); BLOOD UREA NITROGEN 11 MG/DL (7-18); BUN/CREATININE RATIO 12.8 (6.6-38.0); CALCIUM 8.8 MG/DL (8.5-10.1); CHLORIDE 102 MMOL/L (99-107); CREATININE 0.86 MG/DL (0.40-0.90); GLUCOSE 114 MG/DL (70-104); POTASSIUM 4.1 MMOL/L (3.5-5.1); SODIUM 142 MMOL/L (135-145); TOTAL PROTEIN 6.8 G/DL (6.4-8.2); eGFR 76 ML/MIN
[2021-12-09 06:54] VITALS: BP 116/66
--- NOTE | 2021-12-09 07:14 | NUR ---
Patient in room ORTHO 4024. I have received report from Willy LEAL and had the opportunity to ask questions and assume patient care.
[2021-12-09] MEDS: atorvastatin 20mg tablet PO SCH (08:06)
[2021-12-09] MEDS: ESCITALOPRAM OXALATE 5 MG TABLET PO SCH (08:06)
[2021-12-09] MEDS: aspirin 81mg tab.chew PO SCH (08:07)
[2021-12-09] MEDS: ticagrelor 90mg tablet PO SCH ×2 (08:07→19:57)
[2021-12-09] MEDS: metoprolol succinate 25mg (24-HOUR) SR. Tablet PO SCH (08:07)
[2021-12-09] MEDS: docusate sod 100mg capsule PO SCH ×2 (08:07→20:00)
[2021-12-09] MEDS: heparin, porcine 5000 units/ml vial SQ SCH ×2 (08:08→20:02)
[2021-12-09 10:00] VITALS: BP 119/66
[2021-12-09 10:07] LABS: PLATELET ESTIMATE NORMAL
[2021-12-09 10:08] LABS: STOMATOCYTES 2+
[2021-12-09 18:00] VITALS: BP 132/77
--- NOTE | 2021-12-09 18:43 | NUR ---
Patient in room ORTHO 4024. I have received report from Tomasz LEAL and had the opportunity to ask questions and assume patient care.
--- NOTE | 2021-12-09 18:56 | NUR ---
Problems reprioritized. Patient report given, questions answered & plan of care reviewed with Ludivina LEAL.
[2021-12-09 22:00] VITALS: BP 123/50
[2021-12-10] MEDS: HYDROcodone/acetaminophen 5mg/325mg tablet PO PRN ×5 (00:46→23:37)
--- NOTE | 2021-12-10 06:00 | NUR ---
Patient report given to Tomasz LEAL
--- NOTE | 2021-12-10 06:00 | NUR ---
patient refused at this time
[2021-12-10 06:23] LABS: BASOPHILS % (AUTO) 0.8 % (0-1); EOSINOPHILS # (AUTO) 0.1 X10'3 (0-0.9); EOSINOPHILS % (AUTO) 2.6 % (0-6); HEMATOCRIT 38.1 % (35.0-45.0); HEMOGLOBIN 12.7 g/dl (12.0-16.0); LYMPHOCYTES # (AUTO) 1.2 X10'3 (1.1-4.8); LYMPHOCYTES % (AUTO) 26.8 % (21-51); MEAN CORPUSCULAR HEMOGLOBIN 39.6 PG (27.0-31.0); MEAN CORPUSCULAR HGB CONC 33.3 g/dL (33.0-36.5); MEAN CORPUSCULAR VOLUME 119.1 FL (78-98); MEAN PLATELET VOLUME 7.4 FL (7.4-10.4); MONOCYTES # (AUTO) 0.3 X10'3 (0-0.9); MONOCYTES % (AUTO) 7.3 % (2-12); NEUTROPHILS # (AUTO) 2.9 X10'3 (1.8-7.7); NEUTROPHILS % (AUTO) 62.5 % (42-75); PLATELET COUNT 202 X10'3 (140-440); RED CELL DISTRIBUTION WIDTH 15.5 % (11.5-14.5); WHITE BLOOD COUNT 4.6 X10'3 (4.5-11.0)
[2021-12-10 06:40] LABS: ALANINE AMINOTRANSFERASE 76 U/L (12-78); ALBUMIN 3.4 G/DL (3.4-5.0); ALKALINE PHOSPHATASE 52 IU/L (46-116); ANION GAP 7 (8-16); ASPARTATE AMINO TRANSFERASE 79 U/L (10-37); BILIRUBIN,TOTAL 0.4 MG/DL (0.1-1.0); BLOOD UREA NITROGEN 12 MG/DL (7-18); BUN/CREATININE RATIO 14.6 (6.6-38.0); CALCIUM 8.9 MG/DL (8.5-10.1); CHLORIDE 102 MMOL/L (99-107); CREATININE 0.82 MG/DL (0.40-0.90); GLUCOSE 109 MG/DL (70-104); POTASSIUM 3.7 MMOL/L (3.5-5.1); SODIUM 140 MMOL/L (135-145); TOTAL CARBON DIOXIDE 31.3 MMOL/L (24-32); TOTAL PROTEIN 6.8 G/DL (6.4-8.2); eGFR 80 ML/MIN
--- NOTE | 2021-12-10 07:04 | NUR ---
Patient in room ORTHO 4024. I have received report from Ludivina LEAL and had the opportunity to ask questions and assume patient care.
[2021-12-10] MEDS: docusate sod 100mg capsule PO SCH ×2 (07:43→20:00)
[2021-12-10] MEDS: metoprolol succinate 25mg (24-HOUR) SR. Tablet PO SCH (07:43)
[2021-12-10] MEDS: aspirin 81mg tab.chew PO SCH (07:43)
[2021-12-10] MEDS: atorvastatin 20mg tablet PO SCH (07:43)
[2021-12-10] MEDS: ticagrelor 90mg tablet PO SCH ×2 (07:43→19:55)
[2021-12-10] MEDS: ESCITALOPRAM OXALATE 5 MG TABLET PO SCH (07:44)
[2021-12-10] MEDS: heparin, porcine 5000 units/ml vial SQ SCH ×2 (07:49→19:56)
--- NOTE | 2021-12-10 07:53 | NUR ---
Initial: Pt admitted w/ ataxia and CAD per EMR. Currently on Heart Healthy diet eating mostly 100% of meals meeting needs at this time. LBM 12/08 receiving routine colace. No nutrition intervention implemented at this time, will continue to monitor. Recs: 1. Continue Heart Healthy diet as tolerated 2. Bowel care per rx 3. Scaled wts this admit Addendum: 12/10/21 at [address] Amended: Links added.
[2021-12-10 08:00] VITALS: BP 119/72
[2021-12-10 10:00] VITALS: BP_SYST 110; BP_SYST 136; BP_DIAS 69; BP_DIAS 77
[2021-12-10 18:00] VITALS: BP 111/67
--- NOTE | 2021-12-10 18:25 | NUR ---
Problems reprioritized. Patient report given, questions answered & plan of care reviewed with IDALIA LEAL.
--- NOTE | 2021-12-10 18:33 | NUR ---
Patient in room ORTHO 4024. I have received report from Tomasz LEAL and had the opportunity to ask questions and assume patient care.
[2021-12-10 22:00] VITALS: BP 107/56
[2021-12-11 02:00] VITALS: BP 108/45
[2021-12-11 06:10] LABS: BASOPHILS % (AUTO) 0.6 % (0-1); EOSINOPHILS # (AUTO) 0.1 X10'3 (0-0.9); EOSINOPHILS % (AUTO) 2.2 % (0-6); HEMATOCRIT 37.5 % (35.0-45.0); HEMOGLOBIN 12.4 g/dl (12.0-16.0); LYMPHOCYTES # (AUTO) 1.3 X10'3 (1.1-4.8); LYMPHOCYTES % (AUTO) 25.5 % (21-51); MEAN CORPUSCULAR HEMOGLOBIN 39.9 PG (27.0-31.0); MEAN CORPUSCULAR HGB CONC 32.9 g/dL (33.0-36.5); MEAN CORPUSCULAR VOLUME 121.2 FL (78-98); MEAN PLATELET VOLUME 7.3 FL (7.4-10.4); MONOCYTES # (AUTO) 0.5 X10'3 (0-0.9); MONOCYTES % (AUTO) 9.9 % (2-12); NEUTROPHILS # (AUTO) 3.2 X10'3 (1.8-7.7); NEUTROPHILS % (AUTO) 61.8 % (42-75); PLATELET COUNT 205 X10'3 (140-440); RED CELL DISTRIBUTION WIDTH 15.5 % (11.5-14.5); WHITE BLOOD COUNT 5.2 X10'3 (4.5-11.0)
--- NOTE | 2021-12-11 06:30 | NUR ---
Problems reprioritized. Patient report given, questions answered & plan of care reviewed with Jillian LEAL.
[2021-12-11 06:41] LABS: ALANINE AMINOTRANSFERASE 75 U/L (12-78); ALBUMIN 3.3 G/DL (3.4-5.0); ALKALINE PHOSPHATASE 54 IU/L (46-116); ANION GAP 4 (8-16); ASPARTATE AMINO TRANSFERASE 78 U/L (10-37); BILIRUBIN,TOTAL 0.4 MG/DL (0.1-1.0); BLOOD UREA NITROGEN 8 MG/DL (7-18); BUN/CREATININE RATIO 9.4 (6.6-38.0); CALCIUM 8.7 MG/DL (8.5-10.1); CHLORIDE 104 MMOL/L (99-107); CREATININE 0.85 MG/DL (0.40-0.90); GLUCOSE 95 MG/DL (70-104); POTASSIUM 3.8 MMOL/L (3.5-5.1); SODIUM 140 MMOL/L (135-145); TOTAL CARBON DIOXIDE 32.5 MMOL/L (24-32); TOTAL PROTEIN 6.6 G/DL (6.4-8.2); eGFR 77 ML/MIN
--- NOTE | 2021-12-11 06:51 | NUR ---
Patient in room ORTHO 4024. I have received report from Ludivina LEAL and had the opportunity to ask questions and assume patient care.
[2021-12-11 07:00] VITALS: BP 131/56
[2021-12-11] MEDS: atorvastatin 20mg tablet PO SCH (08:03)
[2021-12-11] MEDS: aspirin 81mg tab.chew PO SCH (08:03)
[2021-12-11] MEDS: docusate sod 100mg capsule PO SCH ×2 (08:04→19:47)
[2021-12-11] MEDS: metoprolol succinate 25mg (24-HOUR) SR. Tablet PO SCH (08:04)
[2021-12-11] MEDS: ticagrelor 90mg tablet PO SCH ×2 (08:05→19:47)
[2021-12-11] MEDS: heparin, porcine 5000 units/ml vial SQ SCH (08:06)
[2021-12-11] MEDS: ESCITALOPRAM OXALATE 5 MG TABLET PO SCH (08:08)
[2021-12-11 11:00] VITALS: BP 104/51
--- NOTE | 2021-12-11 17:15 | NUR ---
LP canceled due to patient being on blood thinners.per dr birch. Patient is for MRI T&L call made to MRI who will try to fit patient in now LP is cancelled. patient appeared very tired today, worked with PT. will continue to monitor
[2021-12-11 18:00] VITALS: BP 129/57
[2021-12-11] MEDS: HYDROcodone/acetaminophen 5mg/325mg tablet PO PRN ×2 (18:05→23:43)
[2021-12-11 22:00] VITALS: BP 116/58
[2021-12-12 02:00] VITALS: BP 117/68
[2021-12-12 06:00] VITALS: BP 131/55
[2021-12-12 10:00] VITALS: BP 99/53
[2021-12-12] MEDS: HYDROcodone/acetaminophen 5mg/325mg tablet PO PRN (13:36)
[2021-12-12] MEDS: docusate sod 100mg capsule PO SCH ×2 (13:36→21:01)
[2021-12-12] MEDS: atorvastatin 20mg tablet PO SCH (13:36)
[2021-12-12] MEDS: ESCITALOPRAM OXALATE 5 MG TABLET PO SCH (13:36)
[2021-12-12] MEDS: ticagrelor 90mg tablet PO SCH ×2 (13:36→21:01)
[2021-12-12] MEDS: metoprolol succinate 25mg (24-HOUR) SR. Tablet PO SCH (13:37)
--- NOTE | 2021-12-12 16:17 | NUR ---
PAGER ID: [phone] MESSAGE: [phone] Savi Garcia The MRIs are up, and are concerning, what is your plan. Char 1214
--- NOTE | 2021-12-12 17:00 | NUR ---
PAGER ID: [phone] MESSAGE: [phone] Savi Garcia Patient is asking about test results and a stronger pain medication. Char [phone]
--- NOTE | 2021-12-12 17:49 | NUR ---
Spoke with patient, Dr. Vizcarra regarding imaging, she is waiting on transfer center. Case management has initiated a transfer to [facility]. Paged Dr. Vizcarra to find out if she has spoke to the patient, no answer.
[2021-12-12 18:00] VITALS: BP 106/72
--- NOTE | 2021-12-12 18:15 | NUR ---
Patient in room ORTHO 4006. I have received report from Char LEAL and had the opportunity to ask questions and assume patient care. Addendum: 12/12/21 at 1907 by Sumi Joyce RN Amended: Links added.
[2021-12-12] MEDS: HYDROcodone/acetaminophen 10/325mg tab PO PRN (21:03)
[2021-12-12 22:00] VITALS: BP 125/66
[2021-12-13] MEDS: HYDROcodone/acetaminophen 10/325mg tab PO PRN (01:41)
--- NOTE | 2021-12-13 05:00 | NUR ---
Pt. A & O this shift. Pt. with c/o pain x 2 medicated as ordered effective. Pt. noted to have bilateral isolated loss of sensation but pt could feel pressure per assessment. Call light within reach and bed in low position. Addendum: 12/13/21 at 0724 by Sumi Joyce RN Amended: Links added.
[2021-12-13 06:00] VITALS: BP 132/62
--- NOTE | 2021-12-13 06:20 | NUR ---
Problems reprioritized. Patient report given, questions answered & plan of care reviewed with Char LEAL. Addendum: 12/13/21 at 0815 by Sumi Joyce RN Amended: Links added.
--- NOTE | 2021-12-13 07:38 | NUR ---
PAGER ID: [phone] MESSAGE: [phone] Savi Reed Would you like current labs and may I get something stronger for her pain? Char 5511
[2021-12-13] MEDS ORDERED: oxyCODONE/APAP 5-325mg tablet PO PRN (07:45)
[2021-12-13 08:55] LABS: BASOPHILS % (AUTO) 0.4 % (0-1); EOSINOPHILS # (AUTO) 0.1 X10'3 (0-0.9); HEMATOCRIT 38.2 % (35.0-45.0); HEMOGLOBIN 12.6 g/dl (12.0-16.0); LYMPHOCYTES # (AUTO) 1.4 X10'3 (1.1-4.8); LYMPHOCYTES % (AUTO) 20.9 % (21-51); MEAN CORPUSCULAR HEMOGLOBIN 39.6 PG (27.0-31.0); MEAN CORPUSCULAR VOLUME 119.9 FL (78-98); MEAN PLATELET VOLUME 7.2 FL (7.4-10.4); MONOCYTES # (AUTO) 0.6 X10'3 (0-0.9); MONOCYTES % (AUTO) 9.4 % (2-12); NEUTROPHILS # (AUTO) 4.4 X10'3 (1.8-7.7); NEUTROPHILS % (AUTO) 67.3 % (42-75); PLATELET COUNT 215 X10'3 (140-440); RED BLOOD COUNT 3.18 X10'6 (4.20-5.60); WHITE BLOOD COUNT 6.5 X10'3 (4.5-11.0)
[2021-12-13 09:09] LABS: ALANINE AMINOTRANSFERASE 72 U/L (12-78); ALBUMIN 3.1 G/DL (3.4-5.0); ALBUMIN/GLOBULIN RATIO 0.9 (1.1-1.5); ALKALINE PHOSPHATASE 54 IU/L (46-116); ANION GAP 5 (8-16); ASPARTATE AMINO TRANSFERASE 61 U/L (10-37); BILIRUBIN,TOTAL 0.4 MG/DL (0.1-1.0); BLOOD UREA NITROGEN 9 MG/DL (7-18); CALCIUM 8.8 MG/DL (8.5-10.1); CHLORIDE 105 MMOL/L (99-107); CREATININE 0.75 MG/DL (0.40-0.90); GLUCOSE 113 MG/DL (70-104); POTASSIUM 3.9 MMOL/L (3.5-5.1); SODIUM 141 MMOL/L (135-145); TOTAL CARBON DIOXIDE 31.5 MMOL/L (24-32); TOTAL PROTEIN 6.7 G/DL (6.4-8.2); eGFR 88 ML/MIN
[2021-12-13 09:21] LABS: PLATELET ESTIMATE NORMAL
[2021-12-13] MEDS: atorvastatin 20mg tablet PO SCH (09:29)
[2021-12-13] MEDS: ticagrelor 90mg tablet PO SCH ×2 (09:29→20:25)
[2021-12-13] MEDS: aspirin 81mg tab.chew PO SCH (09:29)
[2021-12-13] MEDS: oxyCODONE/APAP 5-325mg tablet PO PRN ×4 (09:29→21:28)
[2021-12-13] MEDS: ESCITALOPRAM OXALATE 5 MG TABLET PO SCH (09:29)
[2021-12-13] MEDS: docusate sod 100mg capsule PO SCH ×2 (09:29→20:26)
[2021-12-13] MEDS: metoprolol succinate 25mg (24-HOUR) SR. Tablet PO SCH (09:30)
[2021-12-13] MEDS: dexamethasone 4mg tablet PO SCH (09:30)
[2021-12-13 10:00] VITALS: BP 97/53
[2021-12-13 14:00] VITALS: BP 116/59
--- NOTE | 2021-12-13 16:53 | NUR ---
Using a Neurological Wartenberg pinwheel, I started the patients feet. Bilateral dorsal feet, except the ball of the foot were negative for feeling. Bilateral ankles were positive for sensation. Bilateral Shins and calves were negative for sensation. Bilateral quads were positive for sensation. Throughout Abdomen negative for sensation. Throughout chest above Xyphoid process, face and posterior back has sensation. Bilateral lower arms negative sensation and upper arms positive for sensation. Addendum: 12/13/21 at 1756 by Char Leyva RN Amended: Links added.
[2021-12-13 18:00] VITALS: BP 107/77
--- NOTE | 2021-12-13 18:05 | NUR ---
Problems reprioritized. Patient report given, questions answered & plan of care reviewed with Sumi LEAL.
--- NOTE | 2021-12-13 18:15 | NUR ---
Patient in room ORTHO 4024. I have received report from Char LEAL and had the opportunity to ask questions and assume patient care. Addendum: 12/13/21 at 1819 by Sumi Joyce RN Amended: Links added.
[2021-12-13] MEDS ORDERED: nortriptyline 25mg capsule PO SCH (21:00)
[2021-12-13 22:00] VITALS: BP 111/68
[2021-12-14] MEDS: thiamine 100mg tablet PO SCH ×2 (01:48→08:40)
[2021-12-14] MEDS: oxyCODONE/APAP 5-325mg tablet PO PRN ×3 (02:04→12:55)
--- NOTE | 2021-12-14 05:00 | NUR ---
Pt. A & O this shift, c/o pain x 2 this shift medicated. No new neurological events this shift. Call light within reach. Addendum: 12/14/21 at 0700 by Sumi Joyce RN Amended: Links added.
[2021-12-14 06:00] VITALS: BP 115/78
--- NOTE | 2021-12-14 06:20 | NUR ---
Problems reprioritized. Patient report given, questions answered & plan of care reviewed with Nanci LEAL. Addendum: 12/14/21 at 0658 by Sumi Joyce RN Amended: Links added.
--- NOTE | 2021-12-14 06:41 | NUR ---
Received patient report from ELVIS Jonas.
[2021-12-14] MEDS ORDERED: cyanocobalamin 500mcg tablet PO SCH (08:00)
[2021-12-14] MEDS: aspirin 81mg tab.chew PO SCH (08:39)
[2021-12-14] MEDS: dexamethasone 4mg tablet PO SCH (08:40)
[2021-12-14] MEDS: docusate sod 100mg capsule PO SCH (08:40)
[2021-12-14] MEDS: atorvastatin 20mg tablet PO SCH (08:40)
[2021-12-14] MEDS: metoprolol succinate 25mg (24-HOUR) SR. Tablet PO SCH (08:41)
[2021-12-14] MEDS: ticagrelor 90mg tablet PO SCH (08:41)
[2021-12-14] MEDS: ESCITALOPRAM OXALATE 5 MG TABLET PO SCH (08:42)
[2021-12-14] MEDS ORDERED: NORT25CA PO (12:25)
[2021-12-14] MEDS ORDERED: thiamine tablet PO (12:25)
[2021-12-14] MEDS ORDERED: FOLI0.4T6 PO (12:25)
[2021-12-14] MEDS ORDERED: CYAN500T71 PO (12:25)
[2021-12-14] MEDS ORDERED: PER5325T PO (12:25)
== END 2021-12-14 14:14 | disposition home or self-care (01) | DRG 58 ==
LOC: ER 14:30 → ED HOLD 20:28 → ORTHO 4S 12-07 19:30
PROVIDERS: ADMIT Internal Medicine; ATTEND Internal Medicine
PROC: 4A10X4Z Monitoring of Central Nervous Electrical Activity, External Approach (ICD-10-PCS; principal; 2021-12-13)
DX: R27.0 Ataxia, unspecified (principal); R56.9 Unspecified convulsions; E28.2 Polycystic ovarian syndrome; E78.00 Pure hypercholesterolemia, unspecified; H53.2 Diplopia; I10 Essential (primary) hypertension; F17.200 Nicotine dependence, unspecified, uncomplicated; F32.A Depression, unspecified; F41.9 Anxiety disorder, unspecified; E78.5 Hyperlipidemia, unspecified; G43.909 Migraine, unspecified, not intractable, without status migrainosus; M54.50 Low back pain, unspecified; R25.1 Tremor, unspecified; I25.10 Atherosclerotic heart disease of native coronary artery without angina pectoris; I25.2 Old myocardial infarction; Z82.49 Family history of ischemic heart disease and other diseases of the circulatory system; Z80.8 Family history of malignant neoplasm of other organs or systems; Z95.1 Presence of aortocoronary bypass graft; Z95.5 Presence of coronary angioplasty implant and graft; Z79.899 Other long term (current) drug therapy; Z79.82 Long term (current) use of aspirin; Z79.02 Long term (current) use of antithrombotics/antiplatelets
CPT/HCPCS: 36415; 70450; 70551; 71045; 72141; 72146; 72148; 80053; 80320; 82607; 83735; 83880; 84484; 84703; 85008; 85025; 85610; 85651; 85730; 86038; 86140; 86235; 87081; 95816; 97110; 97116; 97161; 97530; 99291; G0378; J1644; J3411; J3490

== ENCOUNTER 2021-12-19 12:24 | Emergency (ER) | payer MEDICAID ==
[~2021-12-19] VITALS: Ht 149.9 cm; Wt 102.3 kg
[~2021-12-19 12:24] MED LIST changes: +CYAN500T71 PO; +FOLI0.4T6 PO; +NORT25CA PO; +PER5325T PO; +thiamine tablet PO
[2021-12-19 13:29] LABS: BASOPHILS % (AUTO) 0.3 % (0-1); EOSINOPHILS # (AUTO) 0.1 X10'3 (0-0.9); EOSINOPHILS % (AUTO) 1.7 % (0-6); HEMATOCRIT 42.1 % (35.0-45.0); HEMOGLOBIN 14.1 g/dl (12.0-16.0); LYMPHOCYTES # (AUTO) 1.1 X10'3 (1.1-4.8); MEAN CORPUSCULAR HEMOGLOBIN 38.1 PG (27.0-31.0); MEAN CORPUSCULAR HGB CONC 33.5 g/dL (33.0-36.5); MEAN CORPUSCULAR VOLUME 113.8 FL (78-98); MEAN PLATELET VOLUME 7.5 FL (7.4-10.4); MONOCYTES # (AUTO) 0.3 X10'3 (0-0.9); MONOCYTES % (AUTO) 4.4 % (2-12); NEUTROPHILS # (AUTO) 5.5 X10'3 (1.8-7.7); NEUTROPHILS % (AUTO) 77.6 % (42-75); PLATELET COUNT 288 X10'3 (140-440); RED CELL DISTRIBUTION WIDTH 15.2 % (11.5-14.5); WHITE BLOOD COUNT 7.1 X10'3 (4.5-11.0)
[2021-12-19 13:37] LABS: CLARITY,URINE SLIGHTLY CLOUDY (Clear); COLOR,URINE YELLOW (Yellow); GLUCOSE, URINE NEGATIVE (Neg); KETONES,URINE NEGATIVE (Neg); LEUKOCYTE ESTERASE ,URINE NEGATIVE (Neg); NITRITES, URINE POSITIVE (Neg); OCCULT BLOOD,URINE SMALL (Neg); PROTEIN,URINE TRACE mg/dl (Neg); UROBILINOGEN,URINE 0.2 E.U/dL (0.2-1.0)
[2021-12-19 13:38] LABS: URINE HCG NEGATIVE (NEG)
[2021-12-19 13:40] LABS: ALANINE AMINOTRANSFERASE 103 U/L (12-78); ALBUMIN 3.9 G/DL (3.4-5.0); ALKALINE PHOSPHATASE 72 IU/L (46-116); ANION GAP 9 (8-16); ASPARTATE AMINO TRANSFERASE 89 U/L (10-37); BILIRUBIN,TOTAL 0.5 MG/DL (0.1-1.0); BLOOD UREA NITROGEN 11 MG/DL (7-18); BUN/CREATININE RATIO 10.3 (6.6-38.0); CALCIUM 8.7 MG/DL (8.5-10.1); CHLORIDE 103 MMOL/L (99-107); CREATININE 1.07 MG/DL (0.40-0.90); GLUCOSE 127 MG/DL (70-104); LIPASE 99 U/L (73-393); POTASSIUM 4.1 MMOL/L (3.5-5.1); SODIUM 141 MMOL/L (135-145); TOTAL CARBON DIOXIDE 29.3 MMOL/L (24-32); TOTAL PROTEIN 7.7 G/DL (6.4-8.2); eGFR 59 ML/MIN
[2021-12-19 13:42] LABS: UA COLLECTION TYPE CLN CATCH MIDSTREAM
[2021-12-19 13:43] LABS: BACTERIA,URINE 4+ /HPF (Neg); SQUAMOUS EPITHELIAL CELL,UR MANY /LPF (FEW)
[2021-12-19] MEDS ORDERED: ONDA4TAB12 PO (15:48)
[2021-12-19] MEDS ORDERED: ondansetron 4mg rapidly disintigrating tab PO ONE (15:50)
[2021-12-19 16:28] VITALS: BP 125/94
== END 2021-12-19 16:31 | disposition home or self-care (01) ==
LOC: ER 12:25
DX: K92.0 Hematemesis (principal); G43.909 Migraine, unspecified, not intractable, without status migrainosus; I25.10 Atherosclerotic heart disease of native coronary artery without angina pectoris; E78.00 Pure hypercholesterolemia, unspecified; I10 Essential (primary) hypertension; I25.2 Old myocardial infarction; F41.9 Anxiety disorder, unspecified; F32.9 Major depressive disorder, single episode, unspecified; Z95.1 Presence of aortocoronary bypass graft; Z79.82 Long term (current) use of aspirin; Z79.899 Other long term (current) drug therapy
CPT/HCPCS: 36415; 80053; 81001; 81025; 83690; 85025; 99283

== ENCOUNTER 2021-12-20 00:43 | Emergency (ER) | payer MEDICAID ==
[~2021-12-20] VITALS: Ht 149.9 cm; Wt 102.3 kg
[~2021-12-20 00:43] MED LIST changes: +ONDA4TAB12 PO
[2021-12-20] MEDS ORDERED: LORazepam 0.5 MG tablet PO ONE (01:00)
[2021-12-20] MEDS ORDERED: ketorolac trometh inj. 60 MG/2 ML VIAL IM ONE (01:00)
[2021-12-20] MEDS ORDERED: orphenadrine citrate 60mg/2ml inj. IM ONE (01:10)
[2021-12-20 04:46] VITALS: BP 107/66
== END 2021-12-20 04:56 | disposition home or self-care (01) ==
LOC: ER 00:43
DX: G89.29 Other chronic pain (principal); M54.59 Other low back pain; I11.9 Hypertensive heart disease without heart failure; E78.00 Pure hypercholesterolemia, unspecified; G43.909 Migraine, unspecified, not intractable, without status migrainosus; F31.9 Bipolar disorder, unspecified
CPT/HCPCS: 72131; 96372; 99284; J1885; J2360

== ENCOUNTER 2023-02-04 11:44 | Emergency (ER) | payer MEDICAID ==
[~2023-02-04] VITALS: Ht 151.1 cm; Wt 88.6 kg
[~2023-02-04 11:44] MED LIST changes: -FOLI0.4T6 PO
[2023-02-04 12:12] LABS: BASOPHILS % (AUTO) 0.4 % (0-1); EOSINOPHILS # (AUTO) 0.1 X10'3 (0-0.9); EOSINOPHILS % (AUTO) 1.8 % (0-6); HEMATOCRIT 33.7 % (35.0-45.0); HEMOGLOBIN 11.1 g/dl (12.0-16.0); LYMPHOCYTES % (AUTO) 22.6 % (21-51); MEAN CORPUSCULAR VOLUME 106.1 FL (78-98); MEAN PLATELET VOLUME 7.3 FL (7.4-10.4); MONOCYTES # (AUTO) 0.4 X10'3 (0-0.9); MONOCYTES % (AUTO) 8.6 % (2-12); NEUTROPHILS # (AUTO) 2.9 X10'3 (1.8-7.7); NEUTROPHILS % (AUTO) 66.6 % (42-75); PLATELET COUNT 317 X10'3 (140-440); RED BLOOD COUNT 3.18 X10'6 (4.20-5.60); RED CELL DISTRIBUTION WIDTH 15.6 % (11.5-14.5); WHITE BLOOD COUNT 4.3 X10'3 (4.5-11.0)
[2023-02-04 12:19] LABS: ALANINE AMINOTRANSFERASE 101 U/L (12-78); ALBUMIN 3.2 G/DL (3.4-5.0); ALBUMIN/GLOBULIN RATIO 0.8 (1.1-1.5); ALKALINE PHOSPHATASE 174 IU/L (46-116); ANION GAP 11 (8-16); ASPARTATE AMINO TRANSFERASE 143 U/L (10-37); BILIRUBIN,TOTAL 0.4 MG/DL (0.1-1.0); BLOOD UREA NITROGEN 7 MG/DL (7-18); BUN/CREATININE RATIO 6.5 (10.0-20.0); CALCIUM 8.3 MG/DL (8.5-10.1); CHLORIDE 105 MMOL/L (99-107); CREATININE 1.08 MG/DL (0.40-0.90); GLUCOSE 156 MG/DL (70-104); POTASSIUM 3.5 MMOL/L (3.5-5.1); SODIUM 141 MMOL/L (135-145); TOTAL CARBON DIOXIDE 25.1 MMOL/L (24-32); eGFR 57 ML/MIN
[2023-02-04 15:48] VITALS: BP 144/90; PULSE 91; RESP 13; TEMP 97.6; O2SAT 99
== END 2023-02-04 15:56 | disposition home or self-care (01) ==
LOC: ER 11:46
DX: R07.89 Other chest pain (principal); G43.909 Migraine, unspecified, not intractable, without status migrainosus; I25.10 Atherosclerotic heart disease of native coronary artery without angina pectoris; I11.0 Hypertensive heart disease with heart failure; I50.9 Heart failure, unspecified; I25.2 Old myocardial infarction; G89.29 Other chronic pain; F41.9 Anxiety disorder, unspecified; F32.9 Major depressive disorder, single episode, unspecified; F17.200 Nicotine dependence, unspecified, uncomplicated; Z95.1 Presence of aortocoronary bypass graft; Z72.89 Other problems related to lifestyle; Z79.82 Long term (current) use of aspirin; Z79.899 Other long term (current) drug therapy
CPT/HCPCS: 36415; 71045; 80053; 83880; 84484; 85025; 93005; 99285

== ENCOUNTER 2023-02-18 10:14 | Inpatient (IN) | payer MEDICAID ==
[~2023-02-18] VITALS: Ht 149.9 cm; Wt 86.4 kg
[2023-02-18 10:44] LABS: BASOPHILS % (AUTO) 0.5 % (0-1); EOSINOPHILS % (AUTO) 0.6 % (0-6); HEMATOCRIT 36.4 % (35.0-45.0); HEMOGLOBIN 12.5 g/dl (12.0-16.0); LYMPHOCYTES # (AUTO) 1.2 X10'3 (1.1-4.8); LYMPHOCYTES % (AUTO) 17.4 % (21-51); MEAN CORPUSCULAR HEMOGLOBIN 36.2 PG (27.0-31.0); MEAN CORPUSCULAR HGB CONC 34.4 g/dL (33.0-36.5); MEAN CORPUSCULAR VOLUME 105.5 FL (78-98); MEAN PLATELET VOLUME 7.7 FL (7.4-10.4); MONOCYTES # (AUTO) 0.3 X10'3 (0-0.9); MONOCYTES % (AUTO) 4.9 % (2-12); NEUTROPHILS # (AUTO) 5.3 X10'3 (1.8-7.7); NEUTROPHILS % (AUTO) 76.6 % (42-75); PLATELET COUNT 354 X10'3 (140-440); RED BLOOD COUNT 3.45 X10'6 (4.20-5.60); RED CELL DISTRIBUTION WIDTH 16.9 % (11.5-14.5)
[2023-02-18 11:14] LABS: ALANINE AMINOTRANSFERASE 251 U/L (12-78); ALBUMIN 3.8 G/DL (3.4-5.0); ALKALINE PHOSPHATASE 216 IU/L (46-116); ANION GAP 14 (8-16); ASPARTATE AMINO TRANSFERASE 791 U/L (10-37); BILIRUBIN,TOTAL 0.9 MG/DL (0.1-1.0); BLOOD UREA NITROGEN 5 MG/DL (7-18); BUN/CREATININE RATIO 3.2 (10.0-20.0); CALCIUM 7.9 MG/DL (8.5-10.1); CHLORIDE 96 MMOL/L (99-107); CREATININE 1.56 MG/DL (0.40-0.90); ETHANOL < 10 MG/DL (<10); GLUCOSE 150 MG/DL (70-104); SODIUM 136 MMOL/L (135-145); TOTAL CARBON DIOXIDE 25.9 MMOL/L (24-32); TOTAL PROTEIN 7.8 G/DL (6.4-8.2); eGFR 38 ML/MIN
[2023-02-18 11:19] LABS: POTASSIUM 2.7 MMOL/L (3.5-5.1)
[2023-02-18 12:36] LABS: LIPASE 196 U/L (73-393)
[2023-02-18 12:39] LABS: MAGNESIUM 0.9 MG/DL (1.5-2.4)
[2023-02-18] MEDS ORDERED: LORazepam 2 mg/ml vial IV ONE (14:55)
[2023-02-18] MEDS ORDERED: magnesium 2GM in 50ml NS 50 ML IV ONE ×2 (14:55→15:05)
[2023-02-18] MEDS ORDERED: potassium CL 10mEq/100ml bag 100 ML IV ONE (14:55)
[2023-02-18] MEDS ORDERED: haloperidol lactate 5mg/ml inj IM ONE (15:05)
[2023-02-18] MEDS ORDERED: potassium Cl 40MEQ/1/2NS 520ml 520 ML IV ONE (15:15)
[2023-02-18] MEDS ORDERED: dicyclomine 10 MG capsule PO PRN ×2 (15:40→16:15)
[2023-02-18] MEDS ORDERED: haloperidol lactate 5mg/ml inj IM PRN (15:40)
[2023-02-18] MEDS ORDERED: cyclobenzaprine 10mg tablet PO PRN (15:40)
[2023-02-18] MEDS ORDERED: mag hydrox/Alum hydrox/simeth 30ml oral suspension PO PRN (15:40)
[2023-02-18] MEDS ORDERED: potassium Cl 20 mEq SR tablet PO PRN ×2 (15:40→17:33)
[2023-02-18] MEDS ORDERED: pantoprazole 40mg IV 80 MG in normal saline 100ml IV soln 100 ML IV ONE (15:40)
[2023-02-18] MEDS ORDERED: LORazepam 2 mg/ml vial IV PRN (15:40)
[2023-02-18] MEDS ORDERED: magnesium 4gm in 100ml NS 100 ML IV PRN (15:40)
[2023-02-18] MEDS ORDERED: magnesium Cl slow-release 64mg tablet PO PRN (15:40)
[2023-02-18] MEDS ORDERED: ondansetron 4mg rapidly disintigrating tab PO PRN (15:40)
[2023-02-18] MEDS ORDERED: magnesium 2GM in 50ml NS 50 ML IV PRN (15:40)
[2023-02-18] MEDS ORDERED: loperamide 2mg capsule PO PRN (15:40)
[2023-02-18] MEDS ORDERED: cloNIDine 0.1 mg tablet PO PRN (15:40)
[2023-02-18] MEDS ORDERED: potassium Cl 40MEQ/1/2NS 520ml 520 ML IV PRN (15:40)
[2023-02-18] MEDS ORDERED: ondansetron/PF 4mg/2ml inj IV PRN (15:40)
[2023-02-18] MEDS ORDERED: magnesium hydroxide 30ml (MOM) UD suspension PO PRN (15:40)
[2023-02-18] MEDS ORDERED: CITA20TA26 PO (16:12)
[2023-02-18] MEDS ORDERED: ASPI-1265 PO (16:12)
[2023-02-18] MEDS ORDERED: GABA-530 PO (16:12)
[2023-02-18] MEDS ORDERED: ONDA-103 PO (16:12)
[2023-02-18] MEDS ORDERED: ATOR20TA66 PO (16:12)
[2023-02-18] MEDS ORDERED: PANT40TA54 PO (16:12)
[2023-02-18] MEDS ORDERED: TICA90TA2 PO (16:12)
[2023-02-18] MEDS ORDERED: NALT50TA PO (16:12)
[2023-02-18] MEDS ORDERED: DICY20TA14 PO (16:12)
[2023-02-18] MEDS ORDERED: MULT-1085 PO (16:12)
[2023-02-18] MEDS ORDERED: NORT25CA PO (16:16)
[2023-02-18] MEDS: dextrose 5%-normal saline 1,000 ML IV SCH ×2 (16:28→23:59)
[2023-02-18] MEDS: aspirin 81mg tab.chew PO SCH (16:29)
[2023-02-18] MEDS ORDERED: acetaminophen 325mg tablet PO PRN (17:30)
[2023-02-18] MEDS: LORazepam 2 mg/ml vial IV PRN (18:54)
[2023-02-18] MEDS: K and/or MAG REPLACEMENT MC SCH (20:00)
[2023-02-18] MEDS: docusate sod 100mg capsule PO SCH (20:00)
[2023-02-18] MEDS ORDERED: nortriptyline 25mg capsule PO SCH (21:00)
[2023-02-18] MEDS ORDERED: atorvastatin 20mg tablet PO SCH (21:00)
[2023-02-18] MEDS: ticagrelor 90mg tablet PO SCH (21:25)
[2023-02-18] MEDS: gabapentin 100mg capsule PO SCH (21:25)
[2023-02-18] MEDS: pantoprazole 40MG/NS 100ML BAG 100 ML IV SCH (21:46)
[2023-02-18] MEDS: thiamine 100mg/ml 2ml inj. IV SCH (21:50)
[2023-02-18] MEDS: heparin, porcine 5000 units/ml vial SQ SCH (21:57)
[2023-02-18 23:39] LABS: BASOPHILS % (AUTO) 0.5 % (0-1); EOSINOPHILS % (AUTO) 0.7 % (0-6); HEMATOCRIT 25.5 % (35.0-45.0); HEMOGLOBIN 8.8 g/dl (12.0-16.0); LYMPHOCYTES # (AUTO) 0.8 X10'3 (1.1-4.8); LYMPHOCYTES % (AUTO) 19.6 % (21-51); MEAN CORPUSCULAR HEMOGLOBIN 36.3 PG (27.0-31.0); MEAN CORPUSCULAR HGB CONC 34.4 g/dL (33.0-36.5); MEAN CORPUSCULAR VOLUME 105.7 FL (78-98); MEAN PLATELET VOLUME 7.1 FL (7.4-10.4); MONOCYTES # (AUTO) 0.2 X10'3 (0-0.9); MONOCYTES % (AUTO) 5.6 % (2-12); NEUTROPHILS # (AUTO) 2.9 X10'3 (1.8-7.7); NEUTROPHILS % (AUTO) 73.6 % (42-75); RED BLOOD COUNT 2.41 X10'6 (4.20-5.60); RED CELL DISTRIBUTION WIDTH 16.7 % (11.5-14.5); WHITE BLOOD COUNT 3.9 X10'3 (4.5-11.0)
--- NOTE | 2023-02-18 23:50 | NUR ---
Pt arrived to unit from the ED admitted for ETOH withdrawl. Pt accompanied by ED nurse and transport personnel. She is A+Ox4, able to make needs known, alert to own abilities. Pt is able to walk independently. Will continue to monitor.
[2023-02-19] VITALS: BP 103/59; PULSE 106; RESP 16; TEMP 98.1; O2SAT 100
[2023-02-19] LABS: ALANINE AMINOTRANSFERASE 183 U/L (12-78); ALBUMIN 2.7 G/DL (3.4-5.0); ALKALINE PHOSPHATASE 145 IU/L (46-116); ANION GAP 11 (8-16); ASPARTATE AMINO TRANSFERASE 512 U/L (10-37); BILIRUBIN,TOTAL 0.7 MG/DL (0.1-1.0); BLOOD UREA NITROGEN 5 MG/DL (7-18); BUN/CREATININE RATIO 3.9 (10.0-20.0); CALCIUM 6.7 MG/DL (8.5-10.1); CHLORIDE 105 MMOL/L (99-107); CREATININE 1.29 MG/DL (0.40-0.90); GLUCOSE 125 MG/DL (70-104); POTASSIUM 3.2 MMOL/L (3.5-5.1); SODIUM 140 MMOL/L (135-145); TOTAL CARBON DIOXIDE 24.3 MMOL/L (24-32); TOTAL PROTEIN 5.5 G/DL (6.4-8.2); eGFR 47 ML/MIN
[2023-02-19 00:07] LABS: PLATELET COUNT 234 X10'3 (140-440)
[2023-02-19] MEDS: LORazepam 2 mg/ml vial IV PRN ×3 (00:45→13:39)
[2023-02-19 03:33] VITALS: BP 96/50; PULSE 105; RESP 15; TEMP 97.7; O2SAT 100
[2023-02-19 03:38] VITALS: BP 96/50; PULSE 105; RESP 15; TEMP 97.7; O2SAT 100
--- NOTE | 2023-02-19 06:24 | NUR ---
Patient in room U 3027. I have received report from Nanci and had the opportunity to ask questions and assume patient care. Addendum: 02/19/23 at 0625 by Dylan Carrington RN Amended: Links added.
--- NOTE | 2023-02-19 06:31 | NUR ---
Problems reprioritized. Patient report given, questions answered & plan of care reviewed with Dylan RN. Pt stable at shift change.
[2023-02-19 06:44] LABS: BASOPHILS % (AUTO) 0.6 % (0-1); EOSINOPHILS % (AUTO) 1.6 % (0-6); HEMATOCRIT 26.4 % (35.0-45.0); HEMOGLOBIN 8.9 g/dl (12.0-16.0); LYMPHOCYTES # (AUTO) 0.8 X10'3 (1.1-4.8); LYMPHOCYTES % (AUTO) 28.1 % (21-51); MEAN CORPUSCULAR HGB CONC 33.6 g/dL (33.0-36.5); MEAN CORPUSCULAR VOLUME 107.1 FL (78-98); MEAN PLATELET VOLUME 7.5 FL (7.4-10.4); MONOCYTES # (AUTO) 0.2 X10'3 (0-0.9); MONOCYTES % (AUTO) 6.7 % (2-12); NEUTROPHILS # (AUTO) 1.9 X10'3 (1.8-7.7); PLATELET COUNT 151 X10'3 (140-440); RED BLOOD COUNT 2.46 X10'6 (4.20-5.60); RED CELL DISTRIBUTION WIDTH 17.4 % (11.5-14.5)
[2023-02-19 07:00] VITALS: BP 123/74; PULSE 113; RESP 17; TEMP 97.3; O2SAT 98
[2023-02-19 07:00] LABS: ALANINE AMINOTRANSFERASE 162 U/L (12-78); ALBUMIN 2.6 G/DL (3.4-5.0); ALBUMIN/GLOBULIN RATIO 0.9 (1.1-1.5); ALKALINE PHOSPHATASE 150 IU/L (46-116); ANION GAP 8 (8-16); ASPARTATE AMINO TRANSFERASE 426 U/L (10-37); BILIRUBIN,TOTAL 0.4 MG/DL (0.1-1.0); BLOOD UREA NITROGEN 4 MG/DL (7-18); BUN/CREATININE RATIO 3.1 (10.0-20.0); CALCIUM 6.7 MG/DL (8.5-10.1); CHLORIDE 106 MMOL/L (99-107); CHOL/HDL RATIO 5.3 (0.00-4.99); CHOLESTEROL 187 MG/DL (0-200); GLUCOSE 164 MG/DL (70-104); HDL CHOLESTEROL 35 MG/DL (35-60); LDL CHOLESTEROL 99 MG/DL (50-100); LIPASE 244 U/L (73-393); MAGNESIUM 1.8 MG/DL (1.5-2.4); PHOSPHORUS 2.8 MG/DL (2.3-4.5); SODIUM 141 MMOL/L (135-145); TOTAL CARBON DIOXIDE 26.7 MMOL/L (24-32); TOTAL PROTEIN 5.4 G/DL (6.4-8.2); TRIGLYCERIDES 228 MG/DL (20-135); eGFR 46 ML/MIN
[2023-02-19 07:02] LABS: POTASSIUM 2.9 MMOL/L (3.5-5.1)
[2023-02-19] MEDS: thiamine 100mg/ml 2ml inj. IV SCH ×2 (07:35→13:40)
[2023-02-19] MEDS: heparin, porcine 5000 units/ml vial SQ SCH (07:36)
[2023-02-19] MEDS: ticagrelor 90mg tablet PO SCH (07:36)
[2023-02-19] MEDS: gabapentin 100mg capsule PO SCH (07:36)
[2023-02-19] MEDS: docusate sod 100mg capsule PO SCH (07:37)
[2023-02-19] MEDS: aspirin 81mg tab.chew PO SCH (07:37)
[2023-02-19] MEDS: pantoprazole 40MG/NS 100ML BAG 100 ML IV SCH (07:38)
[2023-02-19] MEDS: K and/or MAG REPLACEMENT MC SCH (07:50)
[2023-02-19 08:00] VITALS: RESP 14; O2SAT 95
[2023-02-19] MEDS ORDERED: citalopram 20mg tablet PO SCH (08:00)
[2023-02-19] MEDS ORDERED: pantoprazole 40mg Tablet.DR PO SCH (08:00)
[2023-02-19] MEDS ORDERED: nicotine 21mg patch - 24 hr TD SCH (08:00)
[2023-02-19] MEDS ORDERED: multivitamins, therapeutics tablet PO SCH (08:00)
[2023-02-19] MEDS ORDERED: folic acid 1mg/0.2ml inj IV SCH (08:00)
[2023-02-19 08:40] LABS: TOTAL CELLS COUNTED 100
[2023-02-19 08:41] LABS: ANISOCYTOSIS 1+; PLATELET ESTIMATE NORMAL
[2023-02-19] MEDS: dextrose 5%-normal saline 1,000 ML IV SCH (09:40)
[2023-02-19 11:00] VITALS: BP 132/70; PULSE 110; RESP 20; TEMP 97.3; O2SAT 99
--- NOTE | 2023-02-19 11:15 | NUR ---
Malnutrition consult: Pt admit for severe alcohol withdrawal and alcoholic hepatitis per EMR. Per RN malnutrition screen pt reports 24-33 pound wt loss and a decreased in PO/appetite. Pt seen at bedside, reports UBW of 230-240 pounds and a recent wt loss of 30 pounds in the 3 months. Scaled wt this admit of 86.36kg (190 pounds) with no reliable wt hx in EMR, unclear of wt loss timeframe accuracy. Pt reports gradual wt loss since July especially in the last 3 weeks since nausea and vomiting symptoms started. Pt is currently on a regular diet with PO intake of 87.5% of first meal this admit. Pt appeared physically nourished and no indication of fat or muscle wasting noted at this time. Pt does not have documented edema nor weakness per EMR. Pt lack a minimum of two malnutrition criteria at this time. Will continue to monitor and make nutrition interventions as appropriate. Addendum: 02/19/23 at [address] Amended: Links added.
[2023-02-19] MEDS ORDERED: magnesium 4gm in 100ml NS 100 ML IV ONE (11:40)
[2023-02-19] MEDS ORDERED: potassium Cl 20 mEq SR tablet PO STA (13:28)
[2023-02-19] MEDS ORDERED: LORA-269 PO (13:37)
[2023-02-19] MEDS ORDERED: NICO-687 TD (13:37)
[2023-02-19] MEDS ORDERED: THIA50TA10 PO (13:42)
[2023-02-19] MEDS ORDERED: POTA-207 PO (13:42)
[2023-02-19] MEDS ORDERED: MULT-620 PO (13:42)
[2023-02-19] MEDS ORDERED: CYAN500T71 PO (13:42)
[2023-02-19] MEDS ORDERED: FOLI1TAB27 PO (13:42)
[2023-02-19] MEDS ORDERED: MAGN400C PO (13:42)
--- NOTE | 2023-02-19 14:08 | NUR ---
refusing glucose check at this time
--- NOTE | 2023-02-19 16:51 | NUR ---
IV/tele removed, DC instructions reviewed and questions answered, awaiting ride for DC Addendum: 02/19/23 at 1655 by Dylan Carrington RN Recovery and ETOH resources given, H/H nephrology social worker reviewed with PT
== END 2023-02-19 16:56 | disposition home health service (06) | DRG 280 ==
LOC: ER 10:15 → ED HOLD 16:00 → PCU 3S 23:40
PROVIDERS: ADMIT Family Medicine; ATTEND Family Medicine
DX: K70.10 Alcoholic hepatitis without ascites (principal); I11.0 Hypertensive heart disease with heart failure; I50.9 Heart failure, unspecified; E78.00 Pure hypercholesterolemia, unspecified; E83.42 Hypomagnesemia; E87.6 Hypokalemia; F32.A Depression, unspecified; F10.239 Alcohol dependence with withdrawal, unspecified; G62.9 Polyneuropathy, unspecified; F41.9 Anxiety disorder, unspecified; I25.10 Atherosclerotic heart disease of native coronary artery without angina pectoris; G89.29 Other chronic pain; M54.9 Dorsalgia, unspecified; G43.909 Migraine, unspecified, not intractable, without status migrainosus; Z79.82 Long term (current) use of aspirin; Z79.899 Other long term (current) drug therapy; I25.2 Old myocardial infarction; Z95.1 Presence of aortocoronary bypass graft; Z87.891 Personal history of nicotine dependence; Z82.49 Family history of ischemic heart disease and other diseases of the circulatory system
CPT/HCPCS: 36415; 71045; 76700; 80053; 80061; 80320; 82607; 82948; 83036; 83690; 83735; 83880; 84100; 84132; 84484; 85007; 85025; 85610; 87081; 93005; 99285; C9113; G0378; J1630; J1644; J2060; J3411; J3475; J3480; J3490; J7030; J7042

== ENCOUNTER 2023-03-12 20:20 | Emergency (ER) | payer MEDICAID ==
[~2023-03-12] VITALS: Ht 152.4 cm; Wt 90.0 kg
[~2023-03-12 20:20] MED LIST changes: -ASPI-1144 PO; +ASPI-1265 PO; +ATOR20TA66 PO; -ATOR40TA7 PO; +CITA20TA26 PO; +DICY20TA14 PO; -ESCI20TA39 PO; +FOLI1TAB27 PO; +GABA-530 PO; +LORA-269 PO; +MAGN400C PO; -METO-395 PO; +MULT-1085 PO; +MULT-620 PO; +NALT50TA PO; +NICO-687 TD; +ONDA-103 PO; -ONDA4TAB12 PO; +PANT40TA54 PO; -PER5325T PO; +POTA-207 PO; +THIA50TA10 PO; -TICA90TA PO; +TICA90TA2 PO; -thiamine tablet PO
[2023-03-12 20:40] LABS: BASOPHILS # (AUTO) 0.1 X10'3 (0-0.2); BASOPHILS % (AUTO) 0.6 % (0-1); EOSINOPHILS # (AUTO) 0.1 X10'3 (0-0.9); EOSINOPHILS % (AUTO) 0.8 % (0-6); HEMATOCRIT 37.4 % (35.0-45.0); HEMOGLOBIN 12.5 g/dl (12.0-16.0); LYMPHOCYTES # (AUTO) 1.9 X10'3 (1.1-4.8); LYMPHOCYTES % (AUTO) 19.2 % (21-51); MEAN CORPUSCULAR HEMOGLOBIN 36.2 PG (27.0-31.0); MEAN CORPUSCULAR HGB CONC 33.4 g/dL (33.0-36.5); MEAN CORPUSCULAR VOLUME 108.4 FL (78-98); MEAN PLATELET VOLUME 7.9 FL (7.4-10.4); MONOCYTES # (AUTO) 0.6 X10'3 (0-0.9); MONOCYTES % (AUTO) 6.6 % (2-12); NEUTROPHILS % (AUTO) 72.8 % (42-75); PLATELET COUNT 319 X10'3 (140-440); RED BLOOD COUNT 3.45 X10'6 (4.20-5.60); WHITE BLOOD COUNT 9.7 X10'3 (4.5-11.0)
[2023-03-12 20:51] VITALS: TEMP 97.8
[2023-03-12 21:02] LABS: ALANINE AMINOTRANSFERASE 130 U/L (12-78); ALBUMIN 3.8 G/DL (3.4-5.0); ALBUMIN/GLOBULIN RATIO 0.9 (1.1-1.5); ALKALINE PHOSPHATASE 282 IU/L (46-116); ANION GAP 15 (8-16); ASPARTATE AMINO TRANSFERASE 237 U/L (10-37); BILIRUBIN,TOTAL 0.9 MG/DL (0.1-1.0); BLOOD UREA NITROGEN 3 MG/DL (7-18); BUN/CREATININE RATIO 2.1 (10.0-20.0); CALCIUM 9.1 MG/DL (8.5-10.1); CHLORIDE 100 MMOL/L (99-107); CREATININE 1.42 MG/DL (0.40-0.90); GLUCOSE 128 MG/DL (70-104); PRO BRAIN NATRIURETIC PEPTIDE 410 PG/ML (0-125); SODIUM 137 MMOL/L (135-145); TOTAL CARBON DIOXIDE 22.4 MMOL/L (24-32); TOTAL PROTEIN 7.9 G/DL (6.4-8.2); eCRCL 39 ML/MIN; eGFR 42 ML/MIN
[2023-03-12] MEDS ORDERED: thiamine 100mg/ml 2ml inj. IV ONE (22:20)
[2023-03-12] MEDS ORDERED: LORazepam 2 mg/ml vial IV ONE (22:25)
[2023-03-12] MEDS ORDERED: normal saline 1000ML IV soln IVB ONE (22:30)
--- NOTE | 2023-03-12 22:45 | NUR ---
Patient up to restroom, ambulatory without assistance.
[2023-03-12 22:57] LABS: D-DIMER 0.21 MG/L FEU (0-0.50)
[2023-03-12 23:24] LABS: URINE HCG NEGATIVE (NEG)
[2023-03-12 23:44] LABS: URINE AMPHETAMINE SCREEN NEGATIVE (Neg); URINE BARBITUATE SCREEN NEGATIVE (Neg); URINE BENZODIAZEPINES SCREEN NEGATIVE (Neg); URINE CANNABINOID SCREEN NEGATIVE (Neg); URINE COCAINE SCREEN NEGATIVE (Neg); URINE METHADONE SCREEN NEGATIVE (Neg); URINE OPIATE SCREEN NEGATIVE (Neg); URINE PHENCYCLIDINE SCREEN NEGATIVE (Neg)
[2023-03-13 02:36] VITALS: BP 110/89; PULSE 99; RESP 16; O2SAT 100
== END 2023-03-13 02:37 | disposition home or self-care (01) ==
LOC: ER 20:21
DX: F10.20 Alcohol dependence, uncomplicated (principal); Y90.9 Presence of alcohol in blood, level not specified
CPT/HCPCS: 36415; 71045; 80053; 80305; 81025; 83880; 84484; 85025; 85379; 93005; 96361; 96374; 96375; 99285; J2060; J3411; J7030